=== PATIENT | female | born 1930 | race Caucasian/White ===

== ENCOUNTER 2018-07-20 07:37 | Emergency (ER) | payer MEDICARE, OTHER ==
[~2018-07-20] VITALS: Ht 162.6 cm; Wt 79.8 kg
[2018-07-20 08:22] LABS: BASO # 0.1 x10^3/uL (0.0-0.2); BASO % 1 % (0-3); EOS # 0.2 x10^3/uL (0.0-0.7); EOS % 3 % (0-3); HEMATOCRIT 43.6 % (36.0-47.0); HEMOGLOBIN 14.7 g/dL (12.0-15.5); LYMPH # 1.9 x10^3/uL (1.0-4.8); LYMPH % 23 % (24-48); MEAN CORPUSCULAR HEMOGLOBIN 30 pg (25-35); MEAN CORPUSCULAR HGB CONC 34 g/dL (31-37); MEAN CORPUSCULAR VOLUME 90 fL (79-100); MONO # 0.9 x10^3/uL (0.0-1.1); MONO % 11 % (0-9); NEUT # 5.1 x10^3uL (1.8-7.7); NEUT % 62 % (31-73); PLATELET COUNT 328 x10^3/uL (140-400); RED BLOOD COUNT 4.86 x10^6/uL (3.50-5.40); RED CELL DISTRIBUTION WIDTH 14.7 % (11.5-14.5); WHITE BLOOD COUNT 8.2 x10^3/uL (4.0-11.0)
[2018-07-20 08:24] LABS: CLARITY,URINE CLEAR; COLOR,URINE ORANGE
[2018-07-20 08:25] LABS: BACTERIA,URINE 0 /HPF (0-FEW); HYALINE CASTS, URINE FEW /HPF; RBC,URINE 0 /HPF (0-2); SQUAMOUS EPITHELIAL CELL,UR OCC /LPF; WBC,URINE 0 /HPF (0-4)
[2018-07-20 08:29] LABS: CREATININE 0.8 mg/dL (0.6-1.0); GFR 67.8; POTASSIUM 3.7 mmol/L (3.5-5.1)
[2018-07-20 08:43] LABS: ALBUMIN 3.5 g/dL (3.4-5.0); TOTAL BILIRUBIN 0.8 mg/dL (0.2-1.0)
[2018-07-20] MEDS ORDERED: CARV3.122 PO (08:53)
[2018-07-20] MEDS ORDERED: VENL37.56 PO (08:53)
[2018-07-20] MEDS ORDERED: PROM25TA10 PO (08:53)
[2018-07-20] MEDS ORDERED: PHEN-443 PO (08:53)
[2018-07-20] MEDS ORDERED: HYDR-2867 PO (08:53)
[2018-07-20] MEDS ORDERED: RISP0.5T3 PO (08:53)
[2018-07-20] MEDS ORDERED: POTA10TA12 PO (08:53)
[2018-07-20] MEDS ORDERED: ASPI325T11 PO (08:53)
[2018-07-20] MEDS ORDERED: BETA1TAB10 PO (08:53)
[2018-07-20] MEDS ORDERED: DONE5TAB7 PO (08:53)
[2018-07-20] MEDS ORDERED: ATOR20TA58 PO (08:53)
[2018-07-20] MEDS ORDERED: AMLO10TA2 PO (08:53)
[2018-07-20] MEDS ORDERED: LEVO75TA5 PO (08:53)
[2018-07-20] MEDS ORDERED: LEVO500T59 PO (08:53)
--- NOTE | 2018-07-20 09:15 | EKG ---
[facility] [address] [place] [address] Test Date: 2018-07-20 Test Time: 08:29:40 Pat Name: KHUSHBU ACOSTA Department: Room: Gender: F Director Of Business Systems: : 1930 Requested By: ARMAND AMAYA Order Number: [id number] Reading MD: Patrick Acosta MD Measurements Intervals [place] Rate: 105 P: 26 AR: 160 QRS: 15 QRSD: 166 T: -159 QT: 380 QTc: 506 Interpretive Statements V-PACED RHYTHM PROBABLE SINUS Electronically Signed On 07-20-2018 14:54:34 CDT by Patrick Acosta MD
[2018-07-20] MEDS ORDERED: PHEN100T82 PO (09:27)
--- NOTE | 2018-07-20 09:27 | PHYS DOC ---
Past Medical History Past Medical History: High Cholesterol, Heart Disease, Hypertension, Hypothyroid, Other Additional Past Medical Histor: Freq.UTIs Past Surgical History: Appendectomy, Cholecystectomy, Hysterectomy, Pacemaker, Other Additional Past Surgical Histo: Back surgery,breast reduction,dental implants. Alcohol Use: None Drug Use: None Adult General Chief Complaint Chief Complaint: PAIN ON URINATION [facility] HPI Patient is a 88 year old female who presents with complaining of painful urination with burning and dysuria for the last few days. Patient states she has off and on problem with her urination for the last 6 months and taking multiple courses of antibiotic and getting better and worse. Patient states she had painful urination with dysuria for the last few days that gradually getting worse. Patient complaining of nausea and discomfort feeling in lower abdomen without lotion of pain. Patient is vomiting, fever and chills, diarrhea, chest pain and shortness of breath. Review of Systems Review of Systems Constitutional: Denies fever or chills [] Eyes: Denies change in visual acuity, redness, or eye pain [] HENT: Denies nasal congestion or sore throat [] Respiratory: Denies cough or shortness of breath [] Cardiovascular: No additional information not addressed in HPI [] GI: Reports abdominal pain, nausea, denies vomiting, bloody stools or diarrhea [ ] : Reports dysuria Musculoskeletal: Denies back pain or joint pain [] Integument: Denies rash or skin lesions [] Neurologic: Denies headache, focal weakness or sensory changes [] Endocrine: Denies polyuria or polydipsia [] All other systems were reviewed and found to be within normal limits, except as documented in this note. Current Medications Current Medications Current Medications Medications (Trade) Dose Ordered Sig/Maliha Start Time Stop Time Status Last Admin Dose Admin Sodium Chloride 500 ml @ 500 mls/hr 1X ONCE 07/20/18 09:30 07/20/18 10:29 DC 07/20/18 09:32 500 MLS/HR Allergies Allergies Allergies Coded Allergies Type Severity Reaction Last Updated Verified Sulfa (Sulfonamide Antibiotics) Allergy Intermediate Unknown 07/20/18 Yes adhesive tape Allergy Intermediate Hives 07/20/18 Yes codeine Allergy Intermediate "Builds up-makes me crazy" 07/20/18 Yes erythromycin base Allergy Intermediate Swelling. 07/20/18 Yes hydrocodone Allergy Intermediate "Builds up-makes me crazy." 07/20/18 Yes iodine Allergy Intermediate Swelling. 07/20/18 Yes meperidine Allergy Intermediate Itch,N/V,Swelling 07/20/18 Yes Physical Exam Physical Exam Constitutional: Well developed, well nourished, mild distress, non-toxic appearance. [] HENT: Normocephalic, atraumaticoropharynx moist, no oral exudates, nose normal. [] Eyes: PERRLA, EOMI, conjunctiva normal, no discharge. [] Neck: Normal range of motion, no tenderness, supple, no stridor. [] Cardiovascular: Tachycardia, no murmur [] Lungs & Thorax: Bilateral breath sounds clear to auscultation [] Abdomen: Bowel sounds normal, soft, suprapubic guarding, no tenderness, no masses, no pulsatile masses. [] Skin: Warm, dry, no erythema, no rash. [] Back: No tenderness, no CVA tenderness. [] Extremities: No tenderness, no cyanosis, no clubbing, ROM intact, no edema. [] Neurologic: Alert and oriented X 3, normal motor function, normal sensory function, no focal deficits noted. [] Psychologic: Affect normal, judgement normal, mood normal. [] Current Patient Data Vital Signs Vital Signs Date Time Temp Pulse Resp B/P (MAP) Pulse Ox O2 Delivery O2 Flow Rate FiO2 07/20/18 09:50 92 20 164/89 (114) 92 Room Air 07/20/18 07:46 97.6 97.6 Lab Values Laboratory Tests Test 07/20/18 08:00 White Blood Count 8.2 x10^3/uL (4.0-11.0) Red Blood Count 4.86 x10^6/uL (3.50-5.40) Hemoglobin 14.7 g/dL (12.0-15.5) Hematocrit 43.6 % (36.0-47.0) Mean Corpuscular Volume 90 fL (79-100) Mean Corpuscular Hemoglobin 30 pg (25-35) Mean Corpuscular Hemoglobin Concent 34 g/dL (31-37) Red Cell Distribution Width 14.7 % (11.5-14.5) H Platelet Count 328 x10^3/uL (140-400) Neutrophils (%) (Auto) 62 % (31-73) Lymphocytes (%) (Auto) 23 % (24-48) L Monocytes (%) (Auto) 11 % (0-9) H Eosinophils (%) (Auto) 3 % (0-3) Basophils (%) (Auto) 1 % (0-3) Neutrophils # (Auto) 5.1 x10^3uL (1.8-7.7) Lymphocytes # (Auto) 1.9 x10^3/uL (1.0-4.8) Monocytes # (Auto) 0.9 x10^3/uL (0.0-1.1) Eosinophils # (Auto) 0.2 x10^3/uL (0.0-0.7) Basophils # (Auto) 0.1 x10^3/uL (0.0-0.2) Urine Collection Type U cath Urine Color [place] Urine Clarity Clear Urine pH Urine Specific [place] Urine Protein mg/dL (NEG-TRACE) Urine Glucose (UA) mg/dL (NEG) Urine Ketones (Stick) mg/dL (NEG) Urine Blood (NEG) Urine Nitrite (NEG) Urine Bilirubin (NEG) Urine Urobilinogen Dipstick mg/dL (0.2 mg/dL) Urine Leukocyte Esterase (NEG) Urine RBC 0 /HPF (0-2) Urine WBC 0 /HPF (0-4) Urine Squamous Epithelial Cells Occ /LPF Urine Bacteria 0 /HPF (0-FEW) Urine Hyaline Casts Few /HPF Urine Mucus Mod /LPF Sodium Level 138 mmol/L (136-145) Potassium Level 3.7 mmol/L (3.5-5.1) Chloride Level 103 mmol/L (98-107) Carbon Dioxide Level 26 mmol/L (21-32) Anion Gap 9 (6-14) Blood Urea Nitrogen 15 mg/dL (7-20) Creatinine 0.8 mg/dL (0.6-1.0) Estimated GFR (Cockcroft-Gault) 67.8 BUN/Creatinine Ratio 19 (6-20) Glucose Level 124 mg/dL (70-99) H Lactic Acid Level 1.0 mmol/L (0.4-2.0) Calcium Level 9.0 mg/dL (8.5-10.1) Total Bilirubin 0.8 mg/dL (0.2-1.0) Aspartate Amino Transferase (AST) 15 U/L (15-37) Alanine Aminotransferase (ALT) 18 U/L (14-59) Alkaline Phosphatase 76 U/L (46-116) Total Protein 7.0 g/dL (6.4-8.2) Albumin 3.5 g/dL (3.4-5.0) Albumin/Globulin Ratio 1.0 (1.0-1.7) Lipase 297 U/L (73-393) Laboratory Tests 07/20/18 08:00 Laboratory Tests 07/20/18 08:00 EKG EKG Case interpreted by me. EKG at 0 829 showed sinus tachycardia at rate of 105, nonspecific intraventricular block, no acute ST and T-wave abnormalities.[] Radiology/Procedures Radiology/Procedures [] Course & Med Decision Making Course & Med Decision Making Pertinent Labs reviewed. (See chart for details) Evolution of patient in ER showed 88-year-old female patient with complaining of urinary frequency and dysuria intermittently for 6 months that did not worse for the last few days. Patient has suprapubic guarding. Patient had heart rate of 105 without atrial fibrillation area and labs including UA, CBC, CMP, lactic acid was unremarkable. Patient states she has had history of tachycardia that getting better with taking her home medication but she didn't take her medication this morning. Patient treated with IV fluid and heart rate dropped to 90s. Plan discharge patient home with diagnosis of interstitial cystitis and instruction to follow up with on-call urologist. Dragon Disclaimer Dragon Disclaimer This electronic medical record was generated, in whole or in part, using a voice recognition dictation system. Departure Departure Impression: Primary Impression: Interstitial cystitis Additional Impression: Sinus tachycardia Disposition: HOME, SELF-CARE (at 0924) Condition: STABLE Referrals: LI JONES MD Patient Instructions: Interstitial Cystitis, Nonspecific Tachycardia Additional Instructions: Follow-up with on-call urology in one or 2 days Drink plenty of liquids Follow-up with your primary care physician in 3-5 days Return to ER if not getting better Scripts Phenazopyridine Hcl (PYRIDIUM) 100 Mg Tablet 100 MG PO TID, #20 TAB Prov: ARMAND AMAYA MD 07/20/18 Problem Qualifiers ARMAND AMAYA MD Jul 20, 2018 09:27
[2018-07-20] MEDS: IV NORMAL SALINE 500ML BAG 500 ML IV ONE (09:32)
[2018-07-20 09:50] VITALS: BP 164/89
== END 2018-07-20 10:00 | disposition home or self-care (01) ==
LOC: ER 07:37
DX: N30.10 Interstitial cystitis (chronic) without hematuria (principal); R00.0 Tachycardia, unspecified; E78.00 Pure hypercholesterolemia, unspecified; I11.9 Hypertensive heart disease without heart failure; E03.9 Hypothyroidism, unspecified; Z90.49 Acquired absence of other specified parts of digestive tract; Z90.710 Acquired absence of both cervix and uterus; Z90.89 Acquired absence of other organs; Z95.0 Presence of cardiac pacemaker; Z88.2 Allergy status to sulfonamides; Z88.5 Allergy status to narcotic agent; Z88.8 Allergy status to other drugs, medicaments and biological substances; Z91.041 Radiographic dye allergy status
CPT/HCPCS: 36415; 80053; 81001; 83605; 83690; 85025; 93005; 99285; J7040

== ENCOUNTER 2018-07-23 08:16 | Emergency (ER) | payer MEDICARE, OTHER ==
[~2018-07-23] VITALS: Ht 167.6 cm; Wt 79.8 kg
[~2018-07-23 08:16] MED LIST: AMLO10TA2 PO; ASPI325T11 PO; ATOR20TA58 PO; BETA1TAB10 PO; CARV3.122 PO; DONE5TAB7 PO; HYDR-2867 PO; LEVO500T59 PO; LEVO75TA5 PO; PHEN-443 PO; PHEN100T82 PO; POTA10TA12 PO; PROM25TA10 PO; RISP0.5T3 PO; VENL37.56 PO
[2018-07-23] MEDS ORDERED: ACETAMINOPHEN 500 MG TABLET PO ONE (08:45)
[2018-07-23] MEDS ORDERED: IV NORMAL SALINE 1000ML BAG 1,000 ML IV ONE (08:45)
[2018-07-23] MEDS ORDERED: fentaNYL PF VIAL 100 MCG/2 ML VIAL IV ONE (08:45)
--- NOTE | 2018-07-23 08:51 | PHYS DOC ---
Past Medical History Past Medical History: High Cholesterol, Heart Disease, Hypertension, Hypothyroid, Other Additional Past Medical Histor: Freq.UTIs Past Surgical History: Appendectomy, Cholecystectomy, Hysterectomy, Pacemaker, Other Additional Past Surgical Histo: Back surgery,breast reduction,dental implants. Alcohol Use: None Drug Use: None Adult General Chief Complaint Chief Complaint: ABDOMINAL PAIN HPI HPI Patient is a 88 year old female who is presenting with lower abdominal discomfort described as a burning sensation she says it is in her bladder she's had it for several months she was treated here in the emergency room recently for interstitial side cystitis although it is worth noting that she had 0 white blood cells in her urine at that time. She says the pain is worse it feels burning all throughout her whole abdomen and in her back no fever no vomiting history is limited by the patient's dementia. Review of Systems Review of Systems Constitutional: Denies fever or chills [] Eyes: Denies change in visual acuity, redness, or eye pain [] HENT: Denies nasal congestion or sore throat [] Respiratory:occ sob Cardiovascular: No additional information not addressed in HPI [] Musculoskeletal: Integument: Denies rash or skin lesions [] Neurologic: Denies headache, focal weakness or sensory changes [] All other systems were reviewed and found to be within normal limits, except as documented in this note. Current Medications Current Medications Current Medications Medications (Trade) Dose Ordered Sig/Maliha Start Time Stop Time Status Last Admin Dose Admin Acetaminophen (Tylenol) 1,000 mg 1X ONCE 07/23/18 08:45 07/23/18 08:46 DC Fentanyl Citrate (Fentanyl 2ml Vial) 50 mcg 1X ONCE 07/23/18 08:45 07/23/18 08:45 DC Sodium Chloride 1,000 ml @ 1,000 mls/hr 1X ONCE 07/23/18 08:45 07/23/18 09:44 DC 07/23/18 09:06 1,000 MLS/HR Allergies Allergies Allergies Coded Allergies Type Severity Reaction Last Updated Verified Sulfa (Sulfonamide Antibiotics) Allergy Intermediate Unknown 07/20/18 Yes adhesive tape Allergy Intermediate Hives 07/20/18 Yes codeine Allergy Intermediate "Builds up-makes me crazy" 07/20/18 Yes erythromycin base Allergy Intermediate Swelling. 07/20/18 Yes hydrocodone Allergy Intermediate "Builds up-makes me crazy." 07/20/18 Yes iodine Allergy Intermediate Swelling. 07/20/18 Yes meperidine Allergy Intermediate Itch,N/V,Swelling 07/20/18 Yes Physical Exam Physical Exam Constitutional: Well developed, well nourished, mild distress, non-toxic appearance. [] HENT: Normocephalic, atraumatic, bilateral external ears normal, oropharynx moist, no oral exudates, nose normal. [] Eyes: PERRLA, EOMI, conjunctiva normal, no discharge. [] Neck: Normal range of motion, no tenderness, supple, no stridor. [] Cardiovascular:Heart rate regular rhythm, no murmur [] Lungs & Thorax: Bilateral breath sounds clear to auscultation [] Abdomen: Bowel sounds normal, soft, rlq and suprapubic tenderness, no masses, no pulsatile masses. [] Skin: Warm, dry, no erythema, no rash. [] Back:ttp noted diffusely no focality. I feel there is a reducible hernia in the posterior lateral aspect of the abdomen and the back. Extremities: No tenderness, no cyanosis, no clubbing, ROM intact, no edema. [] Neurologic: Alert and oriented X2, normal motor function, normal sensory function, no focal deficits noted. [] Psychologic: Affect normal, judgement normal, mood ANXIOSU [] Current Patient Data Vital Signs Vital Signs Date Time Temp Pulse Resp B/P (MAP) Pulse Ox O2 Delivery O2 Flow Rate FiO2 07/23/18 08:49 97.7 100 16 178/90 (119) 90 Room Air 97.7 Lab Values Laboratory Tests Test 07/23/18 08:43 07/23/18 08:55 Urine Collection Type U cath Urine Color Yellow Urine Clarity Clear Urine pH 6.0 Urine Specific [place] 1.010 Urine Protein Negative mg/dL (NEG-TRACE) Urine Glucose (UA) Negative mg/dL (NEG) Urine Ketones (Stick) Negative mg/dL (NEG) Urine Blood Negative (NEG) Urine Nitrite Positive (NEG) Urine Bilirubin Negative (NEG) Urine Urobilinogen Dipstick 1.0 mg/dL (0.2 mg/dL) Urine Leukocyte Esterase Small (NEG) Urine RBC Occ /HPF (0-2) Urine WBC 11-20 /HPF (0-4) Urine Squamous Epithelial Cells Many /LPF Urine Renal Epithelial Cells Few /LPF Urine Bacteria Many /HPF (0-FEW) Urine Mucus Slight /LPF White Blood Count 8.7 x10^3/uL (4.0-11.0) Red Blood Count 4.61 x10^6/uL (3.50-5.40) Hemoglobin 14.1 g/dL (12.0-15.5) Hematocrit 41.5 % (36.0-47.0) Mean Corpuscular Volume 90 fL (79-100) Mean Corpuscular Hemoglobin 31 pg (25-35) Mean Corpuscular Hemoglobin Concent 34 g/dL (31-37) Red Cell Distribution Width 14.4 % (11.5-14.5) Platelet Count 283 x10^3/uL (140-400) Neutrophils (%) (Auto) 71 % (31-73) Lymphocytes (%) (Auto) 16 % (24-48) L Monocytes (%) (Auto) 9 % (0-9) Eosinophils (%) (Auto) 3 % (0-3) Basophils (%) (Auto) 1 % (0-3) Neutrophils # (Auto) 6.2 x10^3uL (1.8-7.7) Lymphocytes # (Auto) 1.4 x10^3/uL (1.0-4.8) Monocytes # (Auto) 0.8 x10^3/uL (0.0-1.1) Eosinophils # (Auto) 0.3 x10^3/uL (0.0-0.7) Basophils # (Auto) 0.1 x10^3/uL (0.0-0.2) Prothrombin Time 14.1 SEC (11.7-14.0) H Prothrombin Time INR 1.1 (0.8-1.1) Sodium Level 136 mmol/L (136-145) Potassium Level 3.6 mmol/L (3.5-5.1) Chloride Level 103 mmol/L (98-107) Carbon Dioxide Level 29 mmol/L (21-32) Anion Gap 4 (6-14) L Blood Urea Nitrogen 11 mg/dL (7-20) Creatinine 0.7 mg/dL (0.6-1.0) Estimated GFR (Cockcroft-Gault) 79.2 BUN/Creatinine Ratio 16 (6-20) Glucose Level 121 mg/dL (70-99) H Calcium Level 8.6 mg/dL (8.5-10.1) Total Bilirubin 0.6 mg/dL (0.2-1.0) Aspartate Amino Transferase (AST) 13 U/L (15-37) L Alanine Aminotransferase (ALT) 16 U/L (14-59) Alkaline Phosphatase 74 U/L (46-116) Troponin I Quantitative < 0.017 ng/mL (0.000-0.055) Total Protein 6.4 g/dL (6.4-8.2) Albumin 3.1 g/dL (3.4-5.0) L Albumin/Globulin Ratio 0.9 (1.0-1.7) L Lipase 149 U/L (73-393) Laboratory Tests 07/23/18 08:55 Laboratory Tests 07/23/18 08:55 EKG EKG [] Radiology/Procedures Radiology/Procedures [] Impressions: VIMPRESSION: 1. Colonic diverticulosis with short segment of mucosal thickening and slight surrounding stranding involving the proximal to mid sigmoid colon suggesting a component of diverticulitis. 2. Mucosal wall thickening involving the cecum and ascending colon. This is greater than expected for peristalsis. The absence of surrounding fatty stranding suggests possible wall thickening due to the sequela of chronic inflammation. Correlate for history of colitis. 3. Left posterior abdominal wall hernia containing fat and a segment of descending colon. There is evidence of prior right posterior lateral abdominal wall hernia repair. There is a small fat-containing hernia along the inferior aspect of the mesh at the level of the iliac wing. 4. Small fat-containing ventral abdominal wall hernias, described above. 5. Small hiatal hernia and evidence of prior suspected hernia repair. 6. Lobulation along the inferior right and superior left kidneys, difficult to assess in the absence of contrast. The possibility of renal neoplasm is not excluded. There are also suspected small cysts within the left kidney, one of which is hemorrhagic. Correlate with renal sonography. 7. T9 and T12 compression fractures with vertebroplasty changes. No acute fracture is seen. Electronically signed by: Irina Goldstein MD (07/23/2018 9:48 AM) [facility] Course & Med Decision Making Course & Med Decision Making Pertinent Labs and Imaging studies reviewed. (See chart for details) []88 yo f hx of chronic back pain intersitital cystitis coming in with what sounds most like bladder pain however there were no white cells were definitely do CT to rule out other pathology. ED summary: There is evidence of possible diverticulitis on CT scan I think colitis is probably an over read. Noted the posterior lateral hernia. It appears reproducible on my physical examination and patient tells me she has had this for several years ever since a back surgery where they used "a vacuum" . She is not currently interested repair. Patient does have white cells in her urine today but there are a lot of squames. I think that we should give her a prescription for Augmentin for diverticulitis as well as pain control. I offered admission to the hospital however the son says that she is taking oral at home and that her pain is actually fairly well controlled overall and that she is having bowel movements and passing gas and so he feels that she can do this at home which I think is reasonable. Return precautions were discussed and they both voiced understanding of the instructions. Discharge instructions also included follow-up plan for the renal mass findings need for outpatient renal ultrasound. Dragon Disclaimer Dragon Disclaimer This electronic medical record was generated, in whole or in part, using a voice recognition dictation system. Departure Departure Impression: Primary Impression: Diverticulitis Disposition: 01 HOME, SELF-CARE Condition: IMPROVED Referrals: ERNA WU MD (PCP) Scripts Oxycodone/Apap 5-325 (PERCOCET 5-325 MG TABLET) 1 Each Tablet 1-2 EACH PO PRN TID PRN for PAIN, #25 TAB pain Prov: KAY TERRY MD 07/23/18 Amoxicillin/Potassium Clav (AUGMENTIN 875-125 TABLET) 1 Each Tablet 1 TAB PO BID, #20 TAB Prov: KAY TERRY MD 07/23/18 KAY TERRY MD Jul 23, 2018 08:51
[2018-07-23 09:03] LABS: BILIRUBIN,URINE NEGATIVE (NEG); CLARITY,URINE CLEAR; NITRITE,URINE POSITIVE (NEG); PROTEIN,URINE NEGATIVE (NEG-TRACE)
[2018-07-23 09:04] LABS: COLOR,URINE YELLOW
[2018-07-23 09:05] LABS: BACTERIA,URINE MANY /HPF (0-FEW); SQUAMOUS EPITHELIAL CELL,UR MANY /LPF
[2018-07-23 09:06] LABS: RBC,URINE OCC /HPF (0-2)
[2018-07-23 09:08] LABS: BASO # 0.1 x10^3/uL (0.0-0.2); BASO % 1 % (0-3); EOS # 0.3 x10^3/uL (0.0-0.7); EOS % 3 % (0-3); HEMATOCRIT 41.5 % (36.0-47.0); HEMOGLOBIN 14.1 g/dL (12.0-15.5); LYMPH # 1.4 x10^3/uL (1.0-4.8); LYMPH % 16 % (24-48); MEAN CORPUSCULAR HEMOGLOBIN 31 pg (25-35); MEAN CORPUSCULAR HGB CONC 34 g/dL (31-37); MEAN CORPUSCULAR VOLUME 90 fL (79-100); MONO # 0.8 x10^3/uL (0.0-1.1); MONO % 9 % (0-9); NEUT # 6.2 x10^3uL (1.8-7.7); NEUT % 71 % (31-73); PLATELET COUNT 283 x10^3/uL (140-400); RED BLOOD COUNT 4.61 x10^6/uL (3.50-5.40); RED CELL DISTRIBUTION WIDTH 14.4 % (11.5-14.5); WHITE BLOOD COUNT 8.7 x10^3/uL (4.0-11.0)
[2018-07-23 09:17] LABS: CALCIUM 8.6 mg/dL (8.5-10.1); CREATININE 0.7 mg/dL (0.6-1.0); GFR 79.2; POTASSIUM 3.6 mmol/L (3.5-5.1); PROTHROMBIN TIME PATIENT 14.1 SEC (11.7-14.0)
[2018-07-23 09:22] LABS: ALBUMIN 3.1 g/dL (3.4-5.0); ALBUMIN/GLOBULIN RATIO 0.9 (1.0-1.7); TOTAL BILIRUBIN 0.6 mg/dL (0.2-1.0); TOTAL PROTEIN 6.4 g/dL (6.4-8.2)
--- NOTE | 2018-07-23 09:52 | RAD ---
EXAM: Abdomen and pelvis CT without intravenous contrast. HISTORY: Right lower quadrant pain. TECHNIQUE: Computed tomographic images of the abdomen and pelvis were obtained without contrast. Multiplanar reformatting was performed. *One or more of the following individualized dose reduction techniques were utilized for this examination: 1. Automated exposure control. 2. Adjustment of the mA and/or kV according to patient size. 3. Use of iterative reconstruction technique. COMPARISON: None. FINDINGS: Evaluation of the lower thorax demonstrates right middle lobe and lingular atelectasis or scarring. There is minimal posterior dependent and basilar atelectasis. There is no infiltrate. There are cardiac pacemaker leads. There is calcification of the mitral valve annulus. There is a small hiatal hernia. There are surgical clips within the left upper quadrant possibly due to prior hernia repair. No hepatic lesion is seen. The gallbladder is surgically absent. There are calcifications along the pancreatic body would or vascular or due to the sequela of chronic pancreatitis. The adrenal glands are unremarkable. There are few granulomas within the spleen. There is no evidence of nephroureterolithiasis or obstructive uropathy. There is a 4 mm hyperdense lesion within the posterior mid zone of the left kidney, likely a hemorrhagic cyst. There is a 6 mm partially exophytic lesion along the anterior lower mid zone of the left kidney, possibly a cyst. There are areas of nodularity involving the inferior medial right kidney and anterior superior left kidney measuring 2.3 cm and 3.7 cm, difficult to assess in the absence of contrast. The possibility of solid mass is not excluded. There is mesh along the posterior and lateral right lower thoracic and abdominal wall due to prior hernia repair. There is protrusion of fat along the inferior aspect of the mesh along the superior aspect of the right iliac bone. There is a posterior left abdominal wall hernia containing fat and a segment of descending colon. The hernia sac measures 10.2 cm in maximum dimension. There are several small fat-containing midline supraumbilical hernias containing fat. The largest of these measures 4.8 cm in maximum dimension and associated with slight protrusion of a portion of the wall of the transverse colon. There is a small fat-containing left periumbilical hernia measuring 2.6 cm. There is mild circumferential wall thickening involving the cecum and proximal ascending colon. There is no pericolonic stranding in this region. There is colonic diverticulosis. There is segmental wall thickening with minimal surrounding fatty stranding involving the proximal to mid sigmoid colon, possibly due to diverticulitis. No abscess is seen. The bladder is unremarkable. The uterus is surgically absent. There is a tortuous atherosclerotic abdominal aorta. There is no lymphadenopathy. There are degenerative changes throughout the spine. There is grade 1 anterolisthesis at L4-L5 and L5-S1. There are moderate to severe chronic compression fractures with vertebroplasty changes at T12 and T9. There is slight retropulsion of the cortex at T12 resulting in mild central canal stenosis. No acute fracture is seen. IMPRESSION: 1. Colonic diverticulosis with short segment of mucosal thickening and slight surrounding stranding involving the proximal to mid sigmoid colon suggesting a component of diverticulitis. 2. Mucosal wall thickening involving the cecum and ascending colon. This is greater than expected for peristalsis. The absence of surrounding fatty stranding suggests possible wall thickening due to the sequela of chronic inflammation. Correlate for history of colitis. 3. Left posterior abdominal wall hernia containing fat and a segment of descending colon. There is evidence of prior right posterior lateral abdominal wall hernia repair. There is a small fat-containing hernia along the inferior aspect of the mesh at the level of the iliac wing. 4. Small fat-containing ventral abdominal wall hernias, described above. 5. Small hiatal hernia and evidence of prior suspected hernia repair. 6. Lobulation along the inferior right and superior left kidneys, difficult to assess in the absence of contrast. The possibility of renal neoplasm is not excluded. There are also suspected small cysts within the left kidney, one of which is hemorrhagic. Correlate with renal sonography. 7. T9 and T12 compression fractures with vertebroplasty changes. No acute fracture is seen. Electronically signed by: Irina Goldstein MD (07/23/2018 9:48 AM) [facility]
[2018-07-23 10:22] VITALS: BP 166/92
[2018-07-23] MEDS ORDERED: AMOX1TAB61 PO (10:37)
[2018-07-23] MEDS ORDERED: OXYC-323 PO (10:37)
== END 2018-07-23 10:57 | disposition home or self-care (01) ==
LOC: ER 08:16
DX: K57.92 Diverticulitis of intestine, part unspecified, without perforation or abscess without bleeding (principal); E78.00 Pure hypercholesterolemia, unspecified; I10 Essential (primary) hypertension; E03.9 Hypothyroidism, unspecified; Z95.0 Presence of cardiac pacemaker; Z90.49 Acquired absence of other specified parts of digestive tract; Z90.710 Acquired absence of both cervix and uterus; Z88.2 Allergy status to sulfonamides; Z88.5 Allergy status to narcotic agent; Z88.8 Allergy status to other drugs, medicaments and biological substances; Z91.048 Other nonmedicinal substance allergy status
CPT/HCPCS: 36415; 74176; 80053; 81001; 83690; 84484; 85025; 85610; 87086; 87186; 99285; J7030

== ENCOUNTER 2018-07-30 09:59 | Emergency (ER) | payer MEDICARE, OTHER ==
[~2018-07-30] VITALS: Ht 162.6 cm; Wt 79.8 kg
[~2018-07-30 09:59] MED LIST changes: -AMLO10TA2 PO; +AMLO10TA6 PO; +AMOX1TAB61 PO; +OXYC-323 PO
[2018-07-30] MEDS ORDERED: MORPHINE SULFATE 4 MG/ML VIAL. IV ONE (11:15)
[2018-07-30 11:42] LABS: COLOR,URINE ORANGE
[2018-07-30 11:43] LABS: CLARITY,URINE CLEAR
[2018-07-30 11:57] LABS: BACTERIA,URINE 0 /HPF (0-FEW); RBC,URINE 0 /HPF (0-2); SQUAMOUS EPITHELIAL CELL,UR OCC /LPF; WBC,URINE 0 /HPF (0-4)
[2018-07-30 12:03] LABS: BASO # 0.1 x10^3/uL (0.0-0.2); BASO % 1 % (0-3); EOS # 0.2 x10^3/uL (0.0-0.7); EOS % 3 % (0-3); HEMOGLOBIN 13.9 g/dL (12.0-15.5); LYMPH # 1.5 x10^3/uL (1.0-4.8); LYMPH % 21 % (24-48); MEAN CORPUSCULAR HEMOGLOBIN 31 pg (25-35); MEAN CORPUSCULAR HGB CONC 34 g/dL (31-37); MEAN CORPUSCULAR VOLUME 90 fL (79-100); MONO # 0.6 x10^3/uL (0.0-1.1); MONO % 9 % (0-9); NEUT # 4.9 x10^3uL (1.8-7.7); NEUT % 67 % (31-73); PLATELET COUNT 219 x10^3/uL (140-400); RED BLOOD COUNT 4.54 x10^6/uL (3.50-5.40); RED CELL DISTRIBUTION WIDTH 15.1 % (11.5-14.5); WHITE BLOOD COUNT 7.3 x10^3/uL (4.0-11.0)
[2018-07-30 12:06] LABS: CALCIUM 8.9 mg/dL (8.5-10.1); CREATININE 0.7 mg/dL (0.6-1.0); GFR 79.2; POTASSIUM 3.8 mmol/L (3.5-5.1)
--- NOTE | 2018-07-30 13:44 | RAD ---
CT study of the abdomen and pelvis without contrast INDICATIONS: Ongoing worsening abdominal pain. History of diverticulitis. Follow-up study. COMPARISON STUDY: July 23, 2018. TECHNIQUE: Noncontrast helical CT scanning of the abdomen and pelvis was performed. Without contrast, the sensitivity to detect organ pathology and GI tract pathology is decreased. PQRS compliance Statement One or more of the following individualized dose reduction techniques were utilized for this study: 1. Automated exposure control 2. Adjustment of the mA and/or kV according to patient size 3. Use of iterative reconstruction technique FINDINGS: The patient had a recent CT study performed on July 23, 2018. See that report. The liver and spleen and pancreas are unremarkable on this noncontrast study. The gallbladder is surgically absent. There is mild dilatation of the extrahepatic biliary tree measuring up to 9 mm most likely due to the reservoir effect after cholecystectomy. The wall thickening involving the cecum and ascending colon and transverse colon seen on the previous study has resolved. The terminal ileum is unremarkable. The appendix is not identified but there are no secondary CT findings of appendicitis. The pericolonic edema of the proximal to mid sigmoid colon seen previously has resolved. No new focus of mesenteric or pericolonic edema is seen and no abscess or free fluid or free intraperitoneal air is evident. Colonic diverticulosis is again evident and most severely involves the sigmoid colon. No obstructive bowel pattern is evident. Again seen are the hernias discussed on the previous report and are unchanged.Small hiatal hernia is again evident. Lobulation of both kidneys previously described is again evident. There is no new hydronephrosis or hydroureter or ureteral stone present. Compression fractures of the spine are again evident and are unchanged. No lung base consolidation is evident. IMPRESSION: Since the previous study of July 23, 2018, there has been resolution of the wall thickening of the cecum and ascending colon and transverse colon consistent with resolution of colitis. Since the previous study, there has been resolution of the previously seen pericolonic inflammation around the proximal to mid sigmoid colon consistent with resolution of diverticulitis. No new finding is seen involving the bowel. No bowel obstruction is seen. Cholecystectomy. There is mild dilatation of the extrahepatic biliary tree which appears slightly more prominent then on the previous study and measures 9 mm. This may be secondary to the reservoir effect. Correlation with liver function tests is recommended. Electronically signed by: Avery Barrios MD (07/30/2018 1:41 PM) [facility]
[2018-07-30 14:06] VITALS: BP 140/69
[2018-07-30] MEDS ORDERED: OXYC-323 PO (14:38)
--- NOTE | 2018-07-30 17:44 | PHYS DOC ---
Past Medical History Past Medical History: High Cholesterol, Heart Disease, Hypertension, Hypothyroid, Other Additional Past Medical Histor: Freq.UTIs Past Surgical History: Appendectomy, Cholecystectomy, Hysterectomy, Pacemaker, Other Additional Past Surgical Histo: Back surgery,breast reduction,dental implants. Alcohol Use: None Drug Use: None Adult General Chief Complaint Chief Complaint: MEDICATION REFILL [facility] HPI Patient is a 88 year old female who presents with pelvic pain. The patient is primarily requesting a medication refill. She was evaluated here on July 23. At that time she was diagnosed with possible urinary tract infection although her urine was contaminated as a sample. She also had possible diverticulitis. She was discharged home on Augmentin and given some Percocet for pain. Of note, the patient does also have chronic pelvic pain. She returns to the emergency department today because she ran out of her Percocet. She is requesting a refill. She does have ongoing pain in the pelvic area. She denies nausea or vomiting. She is having normal bowel movements. She has no fever. She denies urinary symptoms. She has been taking Augmentin was prescribed. Review of Systems Review of Systems Constitutional: Denies fever or chills Eyes: Denies change in visual acuity, redness, or eye pain HENT: Denies nasal congestion or sore throat Respiratory: Denies cough or shortness of breath Cardiovascular: No additional information not addressed in HPI GI: Denies n/v/d : Denies dysuria or hematuria [] Musculoskeletal: Denies back pain or joint pain [] Integument: Denies rash or skin lesions [] Neurologic: Denies headache, focal weakness or sensory changes [] Endocrine: Denies polyuria or polydipsia [] All other systems were reviewed and found to be within normal limits, except as documented in this note. Current Medications Current Medications Current Medications Medications (Trade) Dose Ordered Sig/Maliha Start Time Stop Time Status Last Admin Dose Admin Morphine Sulfate (Morphine Sulfate) 4 mg 1X ONCE 07/30/18 11:15 07/30/18 11:17 DC 07/30/18 11:47 4 MG Allergies Allergies Allergies Coded Allergies Type Severity Reaction Last Updated Verified Sulfa (Sulfonamide Antibiotics) Allergy Intermediate Unknown 07/20/18 Yes adhesive tape Allergy Intermediate Hives 07/20/18 Yes erythromycin base Allergy Intermediate Swelling. 07/20/18 Yes iodine Allergy Intermediate Swelling. 07/20/18 Yes meperidine Allergy Intermediate Itch,N/V,Swelling 07/20/18 Yes codeine Adverse Reaction Intermediate "Builds up-makes me crazy" 07/30/18 Yes hydrocodone Adverse Reaction Intermediate "Builds up-makes me crazy." 07/30/18 Yes Physical Exam Physical Exam Constitutional: Well developed, well nourished, no acute distress HENT: Normocephalic, atraumatic, bilateral external ears normal, oropharynx moist Eyes: PERRLA, EOMI, conjunctiva normal Neck: Normal range of motion, no tenderness Cardiovascular:Heart rate regular rhythm Lungs & Thorax: Bilateral breath sounds clear to auscultation Abdomen: Bowel sounds normal, soft Skin: Warm, dry, no erythema, Back: No tenderness, no CVA tenderness Extremities: No tenderness, no cyanosis, no clubbing, ROM intact, no edema Neurologic: Alert and oriented X 3, normal motor function Psychologic: Affect normal Current Patient Data Vital Signs Vital Signs Date Time Temp Pulse Resp B/P (MAP) Pulse Ox O2 Delivery O2 Flow Rate FiO2 07/30/18 14:06 74 16 140/69 (92) 96 Nasal Cannula 2.0 07/30/18 10:16 97.6 97.6 Lab Values Laboratory Tests Test 07/30/18 11:30 07/30/18 11:50 Urine Collection Type U cath Urine Color [place] Urine Clarity Clear Urine pH Urine Specific [place] 1.015 Urine Protein mg/dL (NEG-TRACE) Urine Glucose (UA) mg/dL (NEG) Urine Ketones (Stick) mg/dL (NEG) Urine Blood (NEG) Urine Nitrite (NEG) Urine Bilirubin (NEG) Urine Urobilinogen Dipstick mg/dL (0.2 mg/dL) Urine Leukocyte Esterase (NEG) Urine RBC 0 /HPF (0-2) Urine WBC 0 /HPF (0-4) Urine Squamous Epithelial Cells Occ /LPF Urine Bacteria 0 /HPF (0-FEW) White Blood Count 7.3 x10^3/uL (4.0-11.0) Red Blood Count 4.54 x10^6/uL (3.50-5.40) Hemoglobin 13.9 g/dL (12.0-15.5) Hematocrit 41.0 % (36.0-47.0) Mean Corpuscular Volume 90 fL (79-100) Mean Corpuscular Hemoglobin 31 pg (25-35) Mean Corpuscular Hemoglobin Concent 34 g/dL (31-37) Red Cell Distribution Width 15.1 % (11.5-14.5) H Platelet Count 219 x10^3/uL (140-400) Neutrophils (%) (Auto) 67 % (31-73) Lymphocytes (%) (Auto) 21 % (24-48) L Monocytes (%) (Auto) 9 % (0-9) Eosinophils (%) (Auto) 3 % (0-3) Basophils (%) (Auto) 1 % (0-3) Neutrophils # (Auto) 4.9 x10^3uL (1.8-7.7) Lymphocytes # (Auto) 1.5 x10^3/uL (1.0-4.8) Monocytes # (Auto) 0.6 x10^3/uL (0.0-1.1) Eosinophils # (Auto) 0.2 x10^3/uL (0.0-0.7) Basophils # (Auto) 0.1 x10^3/uL (0.0-0.2) Sodium Level 140 mmol/L (136-145) Potassium Level 3.8 mmol/L (3.5-5.1) Chloride Level 103 mmol/L (98-107) Carbon Dioxide Level 34 mmol/L (21-32) H Anion Gap 3 (6-14) L Blood Urea Nitrogen 6 mg/dL (7-20) L Creatinine 0.7 mg/dL (0.6-1.0) Estimated GFR (Cockcroft-Gault) 79.2 Glucose Level 101 mg/dL (70-99) H Calcium Level 8.9 mg/dL (8.5-10.1) Laboratory Tests 07/30/18 11:50 Laboratory Tests 07/30/18 11:50 EKG EKG [] Radiology/Procedures Radiology/Procedures FINDINGS: The patient had a recent CT study performed on July 23, 2018. See that report. The liver and spleen and pancreas are unremarkable on this noncontrast study. The gallbladder is surgically absent. There is mild dilatation of the extrahepatic biliary tree measuring up to 9 mm most likely due to the reservoir effect after cholecystectomy. The wall thickening involving the cecum and ascending colon and transverse colon seen on the previous study has resolved. The terminal ileum is unremarkable. The appendix is not identified but there are no secondary CT findings of appendicitis. The pericolonic edema of the proximal to mid sigmoid colon seen previously has resolved. No new focus of mesenteric or pericolonic edema is seen and no abscess or free fluid or free intraperitoneal air is evident. Colonic diverticulosis is again evident and most severely involves the sigmoid colon. No obstructive bowel pattern is evident. Again seen are the hernias discussed on the previous report and are unchanged.Small hiatal hernia is again evident. Lobulation of both kidneys previously described is again evident. There is no new hydronephrosis or hydroureter or ureteral stone present. Compression fractures of the spine are again evident and are unchanged. No lung base consolidation is evident. IMPRESSION: Since the previous study of July 23, 2018, there has been resolution of the wall thickening of the cecum and ascending colon and transverse colon consistent with resolution of colitis. Since the previous study, there has been resolution of the previously seen pericolonic inflammation around the proximal to mid sigmoid colon consistent with resolution of diverticulitis. No new finding is seen involving the bowel. No bowel obstruction is seen. Cholecystectomy. There is mild dilatation of the extrahepatic biliary tree which appears slightly more prominent then on the previous study and measures 9 mm. This may be secondary to the reservoir effect. Correlation with liver function tests is recommended. Course & Med Decision Making Course & Med Decision Making Pertinent Labs and Imaging studies reviewed. (See chart for details) Patient was evaluated again in the emergency department for abdominal pain. There was concern about refill her medicine and the fact that she had ongoing pelvic pain. In review of her electronic medical medical record, it seems that she does have chronic pelvic pain symptoms thought to be secondary to urinary source. Today, a straight catheter urine was obtained. There was no obvious infection. Her lab panel also did not reveal acute findings. A repeat CT scan was completed to rule out any changes. The previously seen possibility of colitis or diverticulitis had resolved entirely. The patient did complain of pelvic pain although her physical exam was relatively benign. She certainly did not have any peritoneal signs. Ultimately, the patient is discharged to home. She already has follow-up scheduled with her primary care physician. She is provided a refill of her Percocet for pain. Precautions about use of this medication are discussed, specifically the risk of falling. Patient has been tolerating this medication up to this point. Patient is accompanied by her son who is also present during the exam and discharge process. All of their questions are answered. Dragon Disclaimer Dragon Disclaimer This electronic medical record was generated, in whole or in part, using a voice recognition dictation system. Departure Departure Impression: Primary Impression: Chronic pelvic pain in female Disposition: 01 HOME, SELF-CARE Condition: GOOD Patient Instructions: Pelvic Pain, Female Scripts Oxycodone/Apap 5-325 (PERCOCET 5-325 MG TABLET) 1 Each Tablet 1-2 EACH PO PRN TID PRN for severe pain, #30 TAB pain Prov: CAITIE ARREAGA DO 07/30/18 CAITIE ARREAGA DO Jul 30, 2018 17:44
== END 2018-07-30 15:05 | disposition home or self-care (01) ==
LOC: ER 09:59
DX: R10.2 Pelvic and perineal pain (principal); G89.29 Other chronic pain; E78.00 Pure hypercholesterolemia, unspecified; E03.9 Hypothyroidism, unspecified; I11.9 Hypertensive heart disease without heart failure; Z90.89 Acquired absence of other organs; Z90.49 Acquired absence of other specified parts of digestive tract; Z90.710 Acquired absence of both cervix and uterus; Z95.0 Presence of cardiac pacemaker; Z88.2 Allergy status to sulfonamides; Z88.1 Allergy status to other antibiotic agents; Z88.5 Allergy status to narcotic agent; Z88.8 Allergy status to other drugs, medicaments and biological substances; Z91.041 Radiographic dye allergy status
CPT/HCPCS: 36415; 74176; 80048; 81001; 85025; 96374; 99285; J2270; P9612

== ENCOUNTER → 2018-08-01 | Outpatient (CLI) | payer MEDICARE, OTHER ==
[2018-07-30 14:06] VITALS: BP 140/69
--- NOTE | 2018-08-01 16:41 | RAD ---
Renal ultrasound 08/01/2018 INDICATION: Abnormal CT scan. COMPARISON STUDY: CT of the abdomen and pelvis July 30, 2018. Discussion: Ultrasound evaluation of the kidneys was performed. Static images are submitted to PACS. Right kidney measures 10.6 x 4.8 x 4.8 cm. Left kidney measures 12.1 x 4.8 x 5.3 cm. No hydronephrosis, nephrolithiasis, or evidence of obstructive uropathy is seen involving either kidney. There is a 1.6 cm cyst in superior pole of left kidney. No other focal renal lesions are identified. Limited visualization of the bladder is grossly unremarkable. IMPRESSION: 1.6 cm cyst, superior pole left kidney. Otherwise unremarkable sonographic appearance of the kidneys. Electronically signed by: Jakob Menjivar MD (08/01/2018 4:37 PM) [id number]
== END | disposition home or self-care (01) ==
LOC: US 15:20
PROVIDERS: ATTEND Urology
DX: N28.1 Cyst of kidney, acquired (principal); I11.9 Hypertensive heart disease without heart failure; E03.9 Hypothyroidism, unspecified; E78.00 Pure hypercholesterolemia, unspecified; Z90.49 Acquired absence of other specified parts of digestive tract; Z90.710 Acquired absence of both cervix and uterus; Z88.2 Allergy status to sulfonamides; Z88.5 Allergy status to narcotic agent; Z88.8 Allergy status to other drugs, medicaments and biological substances; Z91.048 Other nonmedicinal substance allergy status
CPT/HCPCS: 76770

== ENCOUNTER 2018-08-07 15:58 | Inpatient (IN) | payer MEDICARE, OTHER ==
[~2018-08-07] VITALS: Ht 162.6 cm; Wt 76.3 kg
[2018-08-07] MEDS ORDERED: fentaNYL PF VIAL 100 MCG/2 ML VIAL IV ONE (16:15)
--- NOTE | 2018-08-07 16:20 | PHYS DOC ---
Past Medical History Past Medical History: High Cholesterol, Heart Disease, Hypertension, Hypothyroid, Other Additional Past Medical Histor: Freq.UTIs Past Surgical History: Appendectomy, Cholecystectomy, Hysterectomy, Pacemaker, Other Additional Past Surgical Histo: Back surgery,breast reduction,dental implants. Alcohol Use: None Drug Use: None Adult General Chief Complaint Chief Complaint: PAIN CONTROL HPI HPI Patient is a 88 year old female presents to the ED complaining of right flank pain x 3 days. Patient has a history of back pain. States that a few weeks ago she had a back fracture and cement injected into her back to fix the problem. States she's been taking Percocet at home but the Percocet is not helping her pain. Describes the pain as sharp. Rates the pain as 9 out of 10. EMS concerned family is taking the pain medication. Patient given 30 tablets from [place] [facility] on the 30 of July and states she is out at home. Denies diarrhea, abdominal pain, chest pain, dizziness, weakness, headache, fever, dysuria or hematuria. Review of Systems Review of Systems Constitutional: Denies fever or chills [] Eyes: Denies change in visual acuity, redness, or eye pain [] HENT: Denies nasal congestion or sore throat [] Respiratory: Denies cough or shortness of breath [] Cardiovascular: No additional information not addressed in HPI [] GI: Denies abdominal pain, nausea, vomiting, bloody stools or diarrhea [] : Denies dysuria or hematuria [] Musculoskeletal: Complains of back pain. Denies joint pain [] Integument: Denies rash or skin lesions [] Neurologic: Denies headache, focal weakness or sensory changes [] All other systems were reviewed and found to be within normal limits, except as documented in this note. Current Medications Current Medications Current Medications Medications (Trade) Dose Ordered Sig/Maliha Start Time Stop Time Status Last Admin Dose Admin Fentanyl Citrate (Fentanyl 2ml Vial) 50 mcg 1X ONCE 08/07/18 16:15 08/07/18 16:24 DC Morphine Sulfate (Morphine Sulfate) 4 mg 1X ONCE 08/07/18 16:30 08/07/18 16:31 DC 08/07/18 17:28 4 MG Ondansetron HCl (Zofran) 4 mg 1X ONCE 08/07/18 16:30 08/07/18 16:31 DC 08/07/18 17:27 4 MG Allergies Allergies Allergies Coded Allergies Type Severity Reaction Last Updated Verified Sulfa (Sulfonamide Antibiotics) Allergy Intermediate Unknown 07/20/18 Yes adhesive tape Allergy Intermediate Hives 07/20/18 Yes erythromycin base Allergy Intermediate Swelling. 07/20/18 Yes iodine Allergy Intermediate Swelling. 07/20/18 Yes meperidine Allergy Intermediate Itch,N/V,Swelling 07/20/18 Yes codeine Adverse Reaction Intermediate "Builds up-makes me crazy" 07/30/18 Yes hydrocodone Adverse Reaction Intermediate "Builds up-makes me crazy." 07/30/18 Yes Physical Exam Physical Exam Constitutional: Well developed, well nourished, no acute distress, non-toxic appearance. [] HENT: Normocephalic, atraumatic, bilateral external ears normal, oropharynx moist, no oral exudates, nose normal. [] Eyes: PERRLA, EOMI, conjunctiva normal, no discharge. [] Neck: Normal range of motion, no tenderness, supple, no stridor. [] Cardiovascular:Heart rate regular rhythm, no murmur [] Lungs & Thorax: Bilateral breath sounds clear to auscultation [] Abdomen: Bowel sounds normal, soft, no tenderness, no masses, no pulsatile masses. [] Skin: Warm, dry, no erythema, no rash. [] Back: No tenderness, no CVA tenderness. [] Extremities: No tenderness, no cyanosis, no clubbing, ROM intact, no edema. [] Neurologic: Alert and oriented X 3, normal motor function, normal sensory function, no focal deficits noted. [] Psychologic: Affect normal, judgement normal, mood normal. [] Current Patient Data Vital Signs Vital Signs Date Time Temp Pulse Resp B/P (MAP) Pulse Ox O2 Delivery O2 Flow Rate FiO2 08/07/18 18:14 78 18 91 08/07/18 17:28 Nasal Cannula 3.0 08/07/18 16:14 98.3 196/102 (133) 98.3 Lab Values Laboratory Tests Test 08/07/18 17:25 08/07/18 17:55 White Blood Count 7.5 x10^3/uL (4.0-11.0) Red Blood Count 4.77 x10^6/uL (3.50-5.40) Hemoglobin 14.1 g/dL (12.0-15.5) Hematocrit 42.9 % (36.0-47.0) Mean Corpuscular Volume 90 fL (79-100) Mean Corpuscular Hemoglobin 30 pg (25-35) Mean Corpuscular Hemoglobin Concent 33 g/dL (31-37) Red Cell Distribution Width 14.3 % (11.5-14.5) Platelet Count 221 x10^3/uL (140-400) Neutrophils (%) (Auto) 61 % (31-73) Lymphocytes (%) (Auto) 24 % (24-48) Monocytes (%) (Auto) 12 % (0-9) H Eosinophils (%) (Auto) 3 % (0-3) Basophils (%) (Auto) 1 % (0-3) Neutrophils # (Auto) 4.6 x10^3uL (1.8-7.7) Lymphocytes # (Auto) 1.8 x10^3/uL (1.0-4.8) Monocytes # (Auto) 0.9 x10^3/uL (0.0-1.1) Eosinophils # (Auto) 0.2 x10^3/uL (0.0-0.7) Basophils # (Auto) 0.1 x10^3/uL (0.0-0.2) Sodium Level 136 mmol/L (136-145) Potassium Level 4.5 mmol/L (3.5-5.1) Chloride Level 104 mmol/L (98-107) Carbon Dioxide Level 28 mmol/L (21-32) Anion Gap 4 (6-14) L Blood Urea Nitrogen 9 mg/dL (7-20) Creatinine 0.9 mg/dL (0.6-1.0) Estimated GFR (Cockcroft-Gault) 59.2 BUN/Creatinine Ratio 10 (6-20) Glucose Level 111 mg/dL (70-99) H Calcium Level 8.9 mg/dL (8.5-10.1) Total Bilirubin 0.5 mg/dL (0.2-1.0) Aspartate Amino Transferase (AST) 20 U/L (15-37) Alanine Aminotransferase (ALT) 19 U/L (14-59) Alkaline Phosphatase 63 U/L (46-116) Troponin I Quantitative < 0.017 ng/mL (0.000-0.055) Total Protein 6.5 g/dL (6.4-8.2) Albumin 3.1 g/dL (3.4-5.0) L Albumin/Globulin Ratio 0.9 (1.0-1.7) L Lipase 86 U/L (73-393) Urine Collection Type Void Urine Color [place] Urine Clarity Clear Urine pH 7.0 Urine Specific [place] 1.020 Urine Protein Negative mg/dL (NEG-TRACE) Urine Glucose (UA) Negative mg/dL (NEG) Urine Ketones (Stick) Negative mg/dL (NEG) Urine Blood Negative (NEG) Urine Nitrite Positive (NEG) Urine Bilirubin Negative (NEG) Urine Urobilinogen Dipstick 1.0 mg/dL (0.2 mg/dL) Urine Leukocyte Esterase Small (NEG) Urine RBC 0 /HPF (0-2) Urine WBC 20-40 /HPF (0-4) Urine Squamous Epithelial Cells Mod /LPF Urine Bacteria Mod /HPF (0-FEW) Urine Hyaline Casts Occasional /HPF Urine Mucus Slight /LPF Urine Yeast Present /HPF Laboratory Tests 08/07/18 17:25 Laboratory Tests 08/07/18 17:25 Microbiology 08/07/18 Urine Culture - Preliminary, Resulted 08/07/18 Urine Culture Result 1 ([place]) - Preliminary, Resulted EKG EKG [] Radiology/Procedures Radiology/Procedures PROCEDURE: CHEST AP ONLY EXAM: CHEST 1 VIEW History: Chest pain COMPARISON: None available. TECHNIQUE: Single portable radiograph of the chest FINDINGS: The cardiac silhouette is unremarkable. The lungs are clear bilaterally. The costophrenic sulci are clear and well demarcated. Left-sided cardiac pacer is identified. Kyphoplasty changes identified in the lower thoracic vertebral body. IMPRESSION: No radiographic evidence of an acute cardiopulmonary process.[] Course & Med Decision Making Course & Med Decision Making Pertinent Labs and Imaging studies reviewed. (See chart for details) Pain controlled in the ED. []Discussed case with hospitalist, Dr. Kenny. Agrees to admission and further management patient. Patient stable for admission. Dragon Disclaimer Dragon Disclaimer This electronic medical record was generated, in whole or in part, using a voice recognition dictation system. Departure Departure Impression: Primary Impression: Back pain Disposition: ADMITTED INPATIENT Condition: STABLE Referrals: ERNA WU MD (PCP) Scripts Nitrofurantoin Monohyd/M-Cryst (NITROFURANTOIN MONO-MCR 100 MG) 100 Mg Capsule 1 CAP PO BID, #14 CAP Prov: CONCETTA ROSS MD 08/09/18 BENNY PHILLIPS Aug 07, 2018 16:20 KAY TERRY MD Aug 10, 2018 02:12
[2018-08-07] MEDS ORDERED: MORPHINE SULFATE 4 MG/ML VIAL. IV ONE (16:30)
[2018-08-07] MEDS ORDERED: ONDANSETRON PF 4 MG/2 ML VIAL. IV ONE (16:30)
--- NOTE | 2018-08-07 17:03 | RAD ---
EXAM: CHEST 1 VIEW History: Chest pain COMPARISON: None available. TECHNIQUE: Single portable radiograph of the chest FINDINGS: The cardiac silhouette is unremarkable. The lungs are clear bilaterally. The costophrenic sulci are clear and well demarcated. Left-sided cardiac pacer is identified. Kyphoplasty changes identified in the lower thoracic vertebral body. IMPRESSION: No radiographic evidence of an acute cardiopulmonary process. Electronically signed by: Regulo Mcfarland MD (08/07/2018 5:00 PM) [id number]
[2018-08-07 17:34] LABS: BASO # 0.1 x10^3/uL (0.0-0.2); BASO % 1 % (0-3); EOS # 0.2 x10^3/uL (0.0-0.7); EOS % 3 % (0-3); HEMATOCRIT 42.9 % (36.0-47.0); HEMOGLOBIN 14.1 g/dL (12.0-15.5); LYMPH # 1.8 x10^3/uL (1.0-4.8); LYMPH % 24 % (24-48); MEAN CORPUSCULAR HEMOGLOBIN 30 pg (25-35); MEAN CORPUSCULAR HGB CONC 33 g/dL (31-37); MEAN CORPUSCULAR VOLUME 90 fL (79-100); MONO # 0.9 x10^3/uL (0.0-1.1); MONO % 12 % (0-9); NEUT # 4.6 x10^3uL (1.8-7.7); NEUT % 61 % (31-73); PLATELET COUNT 221 x10^3/uL (140-400); RED BLOOD COUNT 4.77 x10^6/uL (3.50-5.40); RED CELL DISTRIBUTION WIDTH 14.3 % (11.5-14.5); WHITE BLOOD COUNT 7.5 x10^3/uL (4.0-11.0)
[2018-08-07 17:46] LABS: CALCIUM 8.9 mg/dL (8.5-10.1); CREATININE 0.9 mg/dL (0.6-1.0); GFR 59.2; POTASSIUM 4.5 mmol/L (3.5-5.1)
[2018-08-07 17:51] LABS: ALBUMIN 3.1 g/dL (3.4-5.0); ALBUMIN/GLOBULIN RATIO 0.9 (1.0-1.7); TOTAL BILIRUBIN 0.5 mg/dL (0.2-1.0); TOTAL PROTEIN 6.5 g/dL (6.4-8.2)
[2018-08-07 18:02] LABS: BILIRUBIN,URINE NEGATIVE (NEG); CLARITY,URINE CLEAR; COLOR,URINE ORANGE; NITRITE,URINE POSITIVE (NEG); PROTEIN,URINE NEGATIVE (NEG-TRACE)
[2018-08-07 18:31] LABS: BACTERIA,URINE MOD /HPF (0-FEW); RBC,URINE 0 /HPF (0-2); WBC,URINE 20-40 /HPF (0-4)
[2018-08-07 18:32] LABS: HYALINE CASTS, URINE OCCASIONAL /HPF; SQUAMOUS EPITHELIAL CELL,UR MOD /LPF; YEAST,URINE PRESENT /HPF
[2018-08-07] MEDS ORDERED: ONDANSETRON PF 4 MG/2 ML VIAL. IV PRN (18:45)
[2018-08-07] MEDS ORDERED: MORPHINE SULFATE 2 MG/ML VIAL. IV PRN (18:45)
[2018-08-07] MEDS ORDERED: ACETAMINOPHEN 325 MG TABLET. PO PRN (18:45)
[2018-08-07 20:10] VITALS: BP 156/75
[2018-08-07 23:10] VITALS: BP 147/64
[2018-08-08] MEDS ORDERED: PROMETHAZINE 12.5 MG TABLET. PO PRN
[2018-08-08] MEDS ORDERED: PHENAZOPYRIDINE 200 MG TABLET. PO PRN
[2018-08-08] MEDS: cefTRIAXone IV Push 1 GM VIAL. IVP SCH (00:18)
--- NOTE | 2018-08-08 00:25 | HP ---
ADMIT DATE: 08/07/2018 CHIEF COMPLAINT: Back pain. HISTORY OF PRESENT ILLNESS: The patient is a pleasant 88-year-old female who was at home with her son and daughter. Basically, she had some surgery on her back recently. I think it was for compression fracture. She probably had a kyphoplasty. She was sent home with 30 Percocet, but now, she is out of them. She states the pain is not helping. When the EMS was called and they arrived, they were concerned maybe the family could be taking some of her medicine, not really clear on that. Her family members are here. Interestingly, they do have a lot of questions about what meds she is going to go home on and should they take her home meds back home with them. Nevertheless, I have discussed the case with the ER physician. We are going to admit the patient and probably work on getting her placed in a long-term care. PAST MEDICAL HISTORY: Hyperlipidemia, coronary artery disease, hypertension, hypothyroidism, frequent UTIs, cholecystectomy, appendectomy, hysterectomy, pacemaker, back surgeries, dental implants. ALLERGIES: SULFA, CODEINE, TAPE, ERYTHROMYCIN, HYDROCODONE, IODINE, MEPERIDINE. FAMILY HISTORY: Coronary artery disease. SOCIAL HISTORY: She lives at home with her son and daughter. She does not drink, smoke or take drugs. MEDICATIONS: Reviewed, please refer to the MRAD. REVIEW OF SYSTEMS: GENERAL: No history of weight change, weakness or fevers. SKIN: No bruising, hair changes or rashes. EYES: No blurred, double or loss of vision. NOSE AND THROAT: No history of nosebleeds, hoarseness or sore throat. HEART: No history of palpitations, chest pain or shortness of breath on exertion. LUNGS: Denies cough, hemoptysis, wheezing or shortness of breath. GASTROINTESTINAL: Denies changes in appetite, nausea, vomiting, diarrhea or constipation. GENITOURINARY: No history of frequency, urgency, hesitancy or nocturia. NEUROLOGIC: Denies history of numbness, tingling, tremor or weakness. PSYCHIATRIC: No history of panic, anxiety or depression. ENDOCRINE: No history of heat or cold intolerance, polyuria or polydipsia. EXTREMITIES: Denies muscle weakness, joint pain, pain on walking or stiffness. MUSCULOSKELETAL: She complains of back pain. PHYSICAL EXAMINATION: VITAL SIGNS: Temperature afebrile, pulse 80, respirations 18, blood pressure 113/70. GENERAL: She is alert, cooperative, weak, intermittently confused. HEART: Normal S1, S2. LUNGS: Clear. ABDOMEN: Soft. EXTREMITIES: Trace edema. SKIN: No rashes. ENDOCRINE: No thyromegaly. LYMPHATICS: No cervical nodes. HEMATOPOIETIC: No bruising. LABORATORY DATA: Hematology is normal. Electrolytes are normal. Troponin is 0. Urinalysis, small amount of leukocyte esterase with 20-40 white cells. ASSESSMENT AND PLAN: Intractable pain with incidental finding of urinary tract infection. The patient has been admitted. We will get her back on her pain meds, p.r.n. IV morphine. We will start IV Levaquin for her urinary tract infection. PT, OT, wound care. Frequent labs. academic services professional for alf care placement. MARTIN ESTES DO DR: DERIC/kayla JOB#: [id number] / [id number]
[2018-08-08 03:10] VITALS: BP 157/87
[2018-08-08] MEDS: LEVOTHYROXINE 75 MCG TABLET PO SCH (06:09)
[2018-08-08 06:18] LABS: BASO # 0.1 x10^3/uL (0.0-0.2); BASO % 1 % (0-3); EOS # 0.2 x10^3/uL (0.0-0.7); EOS % 5 % (0-3); HEMATOCRIT 39.7 % (36.0-47.0); HEMOGLOBIN 13.3 g/dL (12.0-15.5); LYMPH # 1.4 x10^3/uL (1.0-4.8); LYMPH % 26 % (24-48); MEAN CORPUSCULAR HEMOGLOBIN 30 pg (25-35); MEAN CORPUSCULAR HGB CONC 34 g/dL (31-37); MEAN CORPUSCULAR VOLUME 91 fL (79-100); MONO # 0.6 x10^3/uL (0.0-1.1); MONO % 12 % (0-9); NEUT % 57 % (31-73); PLATELET COUNT 199 x10^3/uL (140-400); RED BLOOD COUNT 4.39 x10^6/uL (3.50-5.40); RED CELL DISTRIBUTION WIDTH 14.5 % (11.5-14.5); WHITE BLOOD COUNT 5.3 x10^3/uL (4.0-11.0)
[2018-08-08 06:46] LABS: ALBUMIN 2.7 g/dL (3.4-5.0); ALBUMIN/GLOBULIN RATIO 0.8 (1.0-1.7); CALCIUM 8.4 mg/dL (8.5-10.1); CREATININE 0.9 mg/dL (0.6-1.0); GFR 59.2; POTASSIUM 3.9 mmol/L (3.5-5.1); TOTAL BILIRUBIN 0.5 mg/dL (0.2-1.0); TOTAL PROTEIN 5.9 g/dL (6.4-8.2)
[2018-08-08 07:00] VITALS: BP 172/95
--- NOTE | 2018-08-08 07:39 | EKG ---
[facility] [address] [place] [address] Test Date: 2018-08-07 Test Time: 16:30:43 Pat Name: KHUSHBU ACOSTA Department: Room: [facility] Gender: F Fusion Juncture Grinder: : 1930 Requested By: BENNY PHILLIPS Order Number: [id number] Reading MD: Ramos Patel Measurements Intervals [place] Rate: 75 P: -12 AL: 174 QRS: -75 QRSD: 170 T: 90 QT: 434 QTc: 488 Interpretive Statements VENTRICULAR PACED RHYTHM Electronically Signed On 08-08-2018 16:28:50 CDT by Ramos Patel
[2018-08-08] MEDS: POTASSIUM CHLORIDE 10 MEQ TABLET.ER. PO SCH ×2 (08:34→16:58)
[2018-08-08] MEDS: MULTIVITAMIN I-VITE TABLET. PO SCH (08:34)
[2018-08-08] MEDS: VENLAFAXINE 50 MG TABLET. PO SCH ×2 (08:34→20:05)
[2018-08-08] MEDS: risperiDONE 0.25 MG TABLET. PO SCH ×2 (08:34→20:05)
[2018-08-08] MEDS: ASPIRIN ENTERIC COATED 325 MG TABLET.DR. PO SCH (08:34)
[2018-08-08] MEDS: CARVEDILOL 3.125 MG TABLET. PO SCH ×2 (08:35→16:59)
[2018-08-08] MEDS: hydrALAZINE 10 MG TABLET PO SCH ×3 (08:38→20:06)
[2018-08-08] MEDS ORDERED: LIDOCAINE (700MG/PATCH) PATCH. TD PRN (09:00)
[2018-08-08] MEDS ORDERED: ONDANSETRON PF 4 MG/2 ML VIAL. IV PRN (09:00)
[2018-08-08 11:00] VITALS: BP 156/74
--- NOTE | 2018-08-08 11:19 | PDOC ---
PROGRESS NOTES Chief Complaint Chief Complaint Acute on chronic back pain UTI Generalized weakness, frailty multiple allergies DNR History of Present Illness History of Present Illness SHe complains of back pain She claims to me on adhesive tape, she gets hives so I held off Lidoderm patch Family tells staff that she supposed to have MRI without contrast-allergy to contrast No recent falls, no history of cancer that I could see Lives at home with family, she has a cane walker, she is not using Plan: Consult physiatry re back pain MRI thoracolumbar without contrast Pain control Home meds have reconciled I did verify CODE STATUS with her, she wishes to be DNR Vitals Vitals Vital Signs Date Time Temp Pulse Resp B/P (MAP) Pulse Ox O2 Delivery O2 Flow Rate FiO2 08/08/18 08:38 85 172/95 08/08/18 07:53 Nasal Cannula 3.0 08/08/18 07:00 97.5 20 93 97.5 Physical Exam General: Alert, Oriented X3, Cooperative, No acute distress Heart: Regular rate, Normal S1, Normal S2, No murmurs Lungs: Clear Abdomen: Normal bowel sounds, Soft, No tenderness Extremities: No clubbing, No cyanosis, No edema Skin: No rashes, No breakdown, No significant lesion Labs LABS Laboratory Tests Test 08/07/18 17:25 08/07/18 17:55 08/08/18 05:25 White Blood Count 7.5 x10^3/uL (4.0-11.0) 5.3 x10^3/uL (4.0-11.0) Red Blood Count 4.77 x10^6/uL (3.50-5.40) 4.39 x10^6/uL (3.50-5.40) Hemoglobin 14.1 g/dL (12.0-15.5) 13.3 g/dL (12.0-15.5) Hematocrit 42.9 % (36.0-47.0) 39.7 % (36.0-47.0) Mean Corpuscular Volume 90 fL (79-100) 91 fL (79-100) Mean Corpuscular Hemoglobin 30 pg (25-35) 30 pg (25-35) Mean Corpuscular Hemoglobin Concent 33 g/dL (31-37) 34 g/dL (31-37) Red Cell Distribution Width 14.3 % (11.5-14.5) 14.5 % (11.5-14.5) Platelet Count 221 x10^3/uL (140-400) 199 x10^3/uL (140-400) Neutrophils (%) (Auto) 61 % (31-73) 57 % (31-73) Lymphocytes (%) (Auto) 24 % (24-48) 26 % (24-48) Monocytes (%) (Auto) 12 % (0-9) 12 % (0-9) Eosinophils (%) (Auto) 3 % (0-3) 5 % (0-3) Basophils (%) (Auto) 1 % (0-3) 1 % (0-3) Neutrophils # (Auto) 4.6 x10^3uL (1.8-7.7) 3.0 x10^3uL (1.8-7.7) Lymphocytes # (Auto) 1.8 x10^3/uL (1.0-4.8) 1.4 x10^3/uL (1.0-4.8) Monocytes # (Auto) 0.9 x10^3/uL (0.0-1.1) 0.6 x10^3/uL (0.0-1.1) Eosinophils # (Auto) 0.2 x10^3/uL (0.0-0.7) 0.2 x10^3/uL (0.0-0.7) Basophils # (Auto) 0.1 x10^3/uL (0.0-0.2) 0.1 x10^3/uL (0.0-0.2) Sodium Level 136 mmol/L (136-145) 139 mmol/L (136-145) Potassium Level 4.5 mmol/L (3.5-5.1) 3.9 mmol/L (3.5-5.1) Chloride Level 104 mmol/L (98-107) 105 mmol/L (98-107) Carbon Dioxide Level 28 mmol/L (21-32) 31 mmol/L (21-32) Anion Gap 4 (6-14) 3 (6-14) Blood Urea Nitrogen 9 mg/dL (7-20) 9 mg/dL (7-20) Creatinine 0.9 mg/dL (0.6-1.0) 0.9 mg/dL (0.6-1.0) Estimated GFR (Cockcroft-Gault) 59.2 59.2 BUN/Creatinine Ratio 10 (6-20) 10 (6-20) Glucose Level 111 mg/dL (70-99) 94 mg/dL (70-99) Calcium Level 8.9 mg/dL (8.5-10.1) 8.4 mg/dL (8.5-10.1) Total Bilirubin 0.5 mg/dL (0.2-1.0) 0.5 mg/dL (0.2-1.0) Aspartate Amino Transf (AST/SGOT) 20 U/L (15-37) 27 U/L (15-37) Alanine Aminotransferase (ALT/SGPT) 19 U/L (14-59) 25 U/L (14-59) Alkaline Phosphatase 63 U/L (46-116) 61 U/L (46-116) Troponin I Quantitative < 0.017 ng/mL (0.000-0.055) Total Protein 6.5 g/dL (6.4-8.2) 5.9 g/dL (6.4-8.2) Albumin 3.1 g/dL (3.4-5.0) 2.7 g/dL (3.4-5.0) Albumin/Globulin Ratio 0.9 (1.0-1.7) 0.8 (1.0-1.7) Lipase 86 U/L (73-393) Urine Collection Type Void Urine Color [place] Urine Clarity Clear Urine pH 7.0 Urine Specific [place] 1.020 Urine Protein Negative mg/dL (NEG-TRACE) Urine Glucose (UA) Negative mg/dL (NEG) Urine Ketones (Stick) Negative mg/dL (NEG) Urine Blood Negative (NEG) Urine Nitrite Positive (NEG) Urine Bilirubin Negative (NEG) Urine Urobilinogen Dipstick 1.0 mg/dL (0.2 mg/dL) Urine Leukocyte Esterase Small (NEG) Urine RBC 0 /HPF (0-2) Urine WBC 20-40 /HPF (0-4) Urine Squamous Epithelial Cells Mod /LPF Urine Bacteria Mod /HPF (0-FEW) Urine Hyaline Casts Occasional /HPF Urine Mucus Slight /LPF Urine Yeast Present /HPF Review of Systems Review of Systems back Pain, the rest of ROS 14 point negative Positive for generalized weakness Assessment and Plan Assessmemt and Plan Problems Medical Problems: (1) Back pain Status: Acute Comment Review of Relevant I have reviewed the following items yue (where applicable) has been applied. Labs Laboratory Tests Test 08/07/18 17:25 08/07/18 17:55 08/08/18 05:25 White Blood Count 7.5 x10^3/uL (4.0-11.0) 5.3 x10^3/uL (4.0-11.0) Red Blood Count 4.77 x10^6/uL (3.50-5.40) 4.39 x10^6/uL (3.50-5.40) Hemoglobin 14.1 g/dL (12.0-15.5) 13.3 g/dL (12.0-15.5) Hematocrit 42.9 % (36.0-47.0) 39.7 % (36.0-47.0) Mean Corpuscular Volume 90 fL (79-100) 91 fL (79-100) Mean Corpuscular Hemoglobin 30 pg (25-35) 30 pg (25-35) Mean Corpuscular Hemoglobin Concent 33 g/dL (31-37) 34 g/dL (31-37) Red Cell Distribution Width 14.3 % (11.5-14.5) 14.5 % (11.5-14.5) Platelet Count 221 x10^3/uL (140-400) 199 x10^3/uL (140-400) Neutrophils (%) (Auto) 61 % (31-73) 57 % (31-73) Lymphocytes (%) (Auto) 24 % (24-48) 26 % (24-48) Monocytes (%) (Auto) 12 % (0-9) 12 % (0-9) Eosinophils (%) (Auto) 3 % (0-3) 5 % (0-3) Basophils (%) (Auto) 1 % (0-3) 1 % (0-3) Neutrophils # (Auto) 4.6 x10^3uL (1.8-7.7) 3.0 x10^3uL (1.8-7.7) Lymphocytes # (Auto) 1.8 x10^3/uL (1.0-4.8) 1.4 x10^3/uL (1.0-4.8) Monocytes # (Auto) 0.9 x10^3/uL (0.0-1.1) 0.6 x10^3/uL (0.0-1.1) Eosinophils # (Auto) 0.2 x10^3/uL (0.0-0.7) 0.2 x10^3/uL (0.0-0.7) Basophils # (Auto) 0.1 x10^3/uL (0.0-0.2) 0.1 x10^3/uL (0.0-0.2) Sodium Level 136 mmol/L (136-145) 139 mmol/L (136-145) Potassium Level 4.5 mmol/L (3.5-5.1) 3.9 mmol/L (3.5-5.1) Chloride Level 104 mmol/L (98-107) 105 mmol/L (98-107) Carbon Dioxide Level 28 mmol/L (21-32) 31 mmol/L (21-32) Anion Gap 4 (6-14) 3 (6-14) Blood Urea Nitrogen 9 mg/dL (7-20) 9 mg/dL (7-20) Creatinine 0.9 mg/dL (0.6-1.0) 0.9 mg/dL (0.6-1.0) Estimated GFR (Cockcroft-Gault) 59.2 59.2 BUN/Creatinine Ratio 10 (6-20) 10 (6-20) Glucose Level 111 mg/dL (70-99) 94 mg/dL (70-99) Calcium Level 8.9 mg/dL (8.5-10.1) 8.4 mg/dL (8.5-10.1) Total Bilirubin 0.5 mg/dL (0.2-1.0) 0.5 mg/dL (0.2-1.0) Aspartate Amino Transf (AST/SGOT) 20 U/L (15-37) 27 U/L (15-37) Alanine Aminotransferase (ALT/SGPT) 19 U/L (14-59) 25 U/L (14-59) Alkaline Phosphatase 63 U/L (46-116) 61 U/L (46-116) Troponin I Quantitative < 0.017 ng/mL (0.000-0.055) Total Protein 6.5 g/dL (6.4-8.2) 5.9 g/dL (6.4-8.2) Albumin 3.1 g/dL (3.4-5.0) 2.7 g/dL (3.4-5.0) Albumin/Globulin Ratio 0.9 (1.0-1.7) 0.8 (1.0-1.7) Lipase 86 U/L (73-393) Urine Collection Type Void Urine Color [place] Urine Clarity Clear Urine pH 7.0 Urine Specific [place] 1.020 Urine Protein Negative mg/dL (NEG-TRACE) Urine Glucose (UA) Negative mg/dL (NEG) Urine Ketones (Stick) Negative mg/dL (NEG) Urine Blood Negative (NEG) Urine Nitrite Positive (NEG) Urine Bilirubin Negative (NEG) Urine Urobilinogen Dipstick 1.0 mg/dL (0.2 mg/dL) Urine Leukocyte Esterase Small (NEG) Urine RBC 0 /HPF (0-2) Urine WBC 20-40 /HPF (0-4) Urine Squamous Epithelial Cells Mod /LPF Urine Bacteria Mod /HPF (0-FEW) Urine Hyaline Casts Occasional /HPF Urine Mucus Slight /LPF Urine Yeast Present /HPF Laboratory Tests Test 08/07/18 17:25 08/07/18 17:55 08/08/18 05:25 White Blood Count 7.5 x10^3/uL (4.0-11.0) 5.3 x10^3/uL (4.0-11.0) Red Blood Count 4.77 x10^6/uL (3.50-5.40) 4.39 x10^6/uL (3.50-5.40) Hemoglobin 14.1 g/dL (12.0-15.5) 13.3 g/dL (12.0-15.5) Hematocrit 42.9 % (36.0-47.0) 39.7 % (36.0-47.0) Mean Corpuscular Volume 90 fL (79-100) 91 fL (79-100) Mean Corpuscular Hemoglobin 30 pg (25-35) 30 pg (25-35) Mean Corpuscular Hemoglobin Concent 33 g/dL (31-37) 34 g/dL (31-37) Red Cell Distribution Width 14.3 % (11.5-14.5) 14.5 % (11.5-14.5) Platelet Count 221 x10^3/uL (140-400) 199 x10^3/uL (140-400) Neutrophils (%) (Auto) 61 % (31-73) 57 % (31-73) Lymphocytes (%) (Auto) 24 % (24-48) 26 % (24-48) Monocytes (%) (Auto) 12 % (0-9) 12 % (0-9) Eosinophils (%) (Auto) 3 % (0-3) 5 % (0-3) Basophils (%) (Auto) 1 % (0-3) 1 % (0-3) Neutrophils # (Auto) 4.6 x10^3uL (1.8-7.7) 3.0 x10^3uL (1.8-7.7) Lymphocytes # (Auto) 1.8 x10^3/uL (1.0-4.8) 1.4 x10^3/uL (1.0-4.8) Monocytes # (Auto) 0.9 x10^3/uL (0.0-1.1) 0.6 x10^3/uL (0.0-1.1) Eosinophils # (Auto) 0.2 x10^3/uL (0.0-0.7) 0.2 x10^3/uL (0.0-0.7) Basophils # (Auto) 0.1 x10^3/uL (0.0-0.2) 0.1 x10^3/uL (0.0-0.2) Sodium Level 136 mmol/L (136-145) 139 mmol/L (136-145) Potassium Level 4.5 mmol/L (3.5-5.1) 3.9 mmol/L (3.5-5.1) Chloride Level 104 mmol/L (98-107) 105 mmol/L (98-107) Carbon Dioxide Level 28 mmol/L (21-32) 31 mmol/L (21-32) Anion Gap 4 (6-14) 3 (6-14) Blood Urea Nitrogen 9 mg/dL (7-20) 9 mg/dL (7-20) Creatinine 0.9 mg/dL (0.6-1.0) 0.9 mg/dL (0.6-1.0) Estimated GFR (Cockcroft-Gault) 59.2 59.2 BUN/Creatinine Ratio 10 (6-20) 10 (6-20) Glucose Level 111 mg/dL (70-99) 94 mg/dL (70-99) Calcium Level 8.9 mg/dL (8.5-10.1) 8.4 mg/dL (8.5-10.1) Total Bilirubin 0.5 mg/dL (0.2-1.0) 0.5 mg/dL (0.2-1.0) Aspartate Amino Transf (AST/SGOT) 20 U/L (15-37) 27 U/L (15-37) Alanine Aminotransferase (ALT/SGPT) 19 U/L (14-59) 25 U/L (14-59) Alkaline Phosphatase 63 U/L (46-116) 61 U/L (46-116) Troponin I Quantitative < 0.017 ng/mL (0.000-0.055) Total Protein 6.5 g/dL (6.4-8.2) 5.9 g/dL (6.4-8.2) Albumin 3.1 g/dL (3.4-5.0) 2.7 g/dL (3.4-5.0) Albumin/Globulin Ratio 0.9 (1.0-1.7) 0.8 (1.0-1.7) Lipase 86 U/L (73-393) Urine Collection Type Void Urine Color [place] Urine Clarity Clear Urine pH 7.0 Urine Specific [place] 1.020 Urine Protein Negative mg/dL (NEG-TRACE) Urine Glucose (UA) Negative mg/dL (NEG) Urine Ketones (Stick) Negative mg/dL (NEG) Urine Blood Negative (NEG) Urine Nitrite Positive (NEG) Urine Bilirubin Negative (NEG) Urine Urobilinogen Dipstick 1.0 mg/dL (0.2 mg/dL) Urine Leukocyte Esterase Small (NEG) Urine RBC 0 /HPF (0-2) Urine WBC 20-40 /HPF (0-4) Urine Squamous Epithelial Cells Mod /LPF Urine Bacteria Mod /HPF (0-FEW) Urine Hyaline Casts Occasional /HPF Urine Mucus Slight /LPF Urine Yeast Present /HPF Medications Current Medications Fentanyl Citrate (Fentanyl 2ml Vial) 50 mcg 1X ONCE IV ; Start 08/07/18 at 16: 15; Stop 08/07/18 at 16:24; Status DC Morphine Sulfate (Morphine Sulfate) 4 mg 1X ONCE IV Last administered on at 17:28; Start 08/07/18 at 16:30; Stop 08/07/18 at 16:31; Status DC Ondansetron HCl (Zofran) 4 mg 1X ONCE IV Last administered on 08/07/18at 17:27 ; Start 08/07/18 at 16:30; Stop 08/07/18 at 16:31; Status DC Ondansetron HCl (Zofran) 4 mg PRN Q8HRS PRN IV NAUSEA/VOMITING; Start 08/07/18 at 18:45; Stop 08/08/18 at 08:55; Status DC Morphine Sulfate (Morphine Sulfate) 2 mg PRN Q2HR PRN IV PAIN Last administered on 08/08/18at 04:48; Start 08/07/18 at 18:45; Stop 08/08/18 at 18:44 Acetaminophen (Tylenol) 650 mg PRN Q4HRS PRN PO FEVER; Start 08/07/18 at 18:45 ; Stop 08/08/18 at 09:03; Status DC Ceftriaxone Sodium 1 gm/ Dextrose 50 ml @ 100 mls/hr Q24H IV ; Start 08/07/18 at 23:30; Status UNV Ceftriaxone Sodium (Rocephin) 1 gm Q24H IVP Last administered on 08/08/18at 00: 18; Start 08/07/18 at 23:30 Aspirin (Ecotrin) 325 mg DAILY PO Last administered on 08/08/18at 08:34; Start 08/08/18 at 09:00 Atorvastatin Calcium (Lipitor) 20 mg HS PO ; Start 08/08/18 at 21:00 Carvedilol (Coreg) 3.125 mg BIDWMEALS PO Last administered on 08/08/18at 08:35; Start 08/08/18 at 08:00 Levothyroxine Sodium (Synthroid) 75 mcg DAILY06 PO Last administered on at 06:09; Start 08/08/18 at 06:00 Oxycodone/ Acetaminophen (Percocet 5/325) 1 tab PRN TID PRN PO PAIN; Start 10/15 at 00:00 Potassium Chloride (Klor-Con) 10 meq BIDWMEALS PO Last administered on at 08:34; Start 08/08/18 at 08:00 Multivitamins/ Minerals (I-Peyton) 1 tab DAILY PO Last administered on 08/08/18at 08:34; Start 08/08/18 at 09:00 Donepezil HCl (Aricept) 5 mg HS PO ; Start 08/08/18 at 21:00 Hydralazine HCl (Apresoline) 10 mg TID PO Last administered on 08/08/18at 08:38 ; Start 08/08/18 at 09:00 Phenazopyridine HCl (Pyridium) 100 mg PRN TID PRN PO URINARY PAIN; Start at 00:00 Promethazine HCl (Phenergan) 25 mg PRN Q6HRS PRN PO NAUSEA/VOMITING; Start 10/15 at 00:00 Risperidone (RisperDAL) 0.5 mg BID PO Last administered on 08/08/18at 08:34; Start 08/08/18 at 09:00 Venlafaxine HCl (Effexor) 50 mg BID PO Last administered on 08/08/18at 08:34; Start 08/08/18 at 09:00 Ondansetron HCl (Zofran) 4 mg PRN Q6HRS PRN IV NAUSEA/VOMITING; Start 08/08/18 at 09:00 Acetaminophen (Tylenol) 500 mg PRN Q6HRS PRN PO MILD PAIN / TEMP; Start at 09:00 Lidocaine (Lidoderm) 1 patch DAILY PRN TD Back Pain; Start 08/08/18 at 09:00 Active Scripts Active Percocet 5-325 Mg Tablet (Oxycodone/Acetaminophen) 1 Each Tablet 1-2 Each PO PRN TID PRN pain Percocet 5-325 Mg Tablet (Oxycodone/Acetaminophen) 1 Each Tablet 1-2 Each PO PRN TID PRN pain Augmentin 875-125 Tablet (Amoxicillin/Potassium Clav) 1 Each Tablet 1 Tab PO BID Pyridium (Phenazopyridine Hcl) 100 Mg Tablet 100 Mg PO TID Reported Donepezil Hcl 5 Mg Tablet 5 Mg PO HS Venlafaxine Hcl 37.5 Mg Tablet 50 Mg PO BID Carvedilol 3.125 Mg Tablet 3.125 Mg PO BID Amlodipine Besylate 10 Mg Tablet 10 Mg PO DAILY Levaquin (Levofloxacin) 500 Mg Tablet 1 Tab PO DAILY Levothyroxine Sodium 75 Mcg Tablet 75 Mcg PO DAILY06 Phenazopyridine Hcl 100 Mg Tablet 100 Mg PO TID PRN Potassium Chloride 10 Meq Tablet.er 10 Meq PO BID Risperidone 0.5 Mg Tablet 0.5 Mg PO BID Vision Vitamins (Beta-Carotene(A) W-C & E/Min) 1 Each Tablet 1 Tab PO DAILY Hydralazine Hcl 10 Mg Tablet 10 Mg PO TID Atorvastatin Calcium 20 Mg Tablet 20 Mg PO HS Aspirin Ec (Aspirin) 325 Mg Tablet.dr 325 Mg PO DAILY Promethazine Hcl 25 Mg Tablet 25 Mg PO PRN Q6HRS PRN Vitals/I & O Vital Sign - Last 24 Hours 08/07/18 08/07/18 08/07/18 08/07/18 16:14 17:14 17:28 18:14 Temp 98.3 98.3 Pulse 81 78 78 Resp 16 16 16 18 B/P (MAP) 196/102 (133) Pulse Ox 89 94 94 91 O2 Delivery Room Air Nasal Cannula O2 Flow Rate 3.0 08/07/18 08/07/18 08/07/18 08/07/18 19:14 20:00 20:10 23:10 Temp 98.0 97.4 98.0 97.4 Pulse 78 77 75 73 Resp 18 18 18 18 B/P (MAP) 156/75 (102) 147/64 (91) Pulse Ox 92 93 92 96 O2 Delivery Nasal Cannula Nasal Cannula O2 Flow Rate 3.0 3.0 08/07/18 08/08/18 08/08/18 08/08/18 23:17 03:10 04:48 05:19 Temp 98.0 98.0 Pulse 86 Resp 18 B/P (MAP) 157/87 (110) Pulse Ox 94 O2 Delivery Nasal Cannula Nasal Cannula Nasal Cannula Nasal Cannula O2 Flow Rate 3.0 3.0 3.0 3.0 08/08/18 08/08/18 08/08/18 08/08/18 07:00 07:53 08:35 08:38 Temp 97.5 97.5 Pulse 85 85 85 Resp 20 B/P (MAP) 172/95 (120) 172/95 172/95 Pulse Ox 93 O2 Delivery Nasal Cannula Nasal Cannula O2 Flow Rate 3.0 3.0 Intake and Output 08/07/18 08/07/18 08/08/18 15:00 23:00 07:00 Intake Total 0 ml Balance 0 ml CONCETTA ROSS MD Aug 08, 2018 11:19
[2018-08-08] MEDS: ACETAMINOPHEN 500 MG TABLET PO PRN ×2 (13:31→20:05)
--- NOTE | 2018-08-08 14:44 | RAD ---
Lumbar spine, 3 views, 08/08/2018: HISTORY: Low back pain There is a mild thoracolumbar scoliosis. The lumbar vertebral heights are well-maintained. There is partial sacralization of L5. A laminectomy defect is seen at L5-S1. There are vertebroplasty changes at T12 and T9. There is mild to moderate disc space narrowing at multiple levels, particularly at L4-5 and L5-S1. There are moderate scattered marginal spurs. There are moderate degenerative changes involving the facet joints, particularly in the lower lumbar spine. There is mild associated anterolisthesis at L4-5. No acute fractures evident. Moderate aortic calcific plaquing is noted. IMPRESSION: 1. Moderate multilevel degenerative change. 2. Previous laminectomy at L5-S1. 3. Mild anterolisthesis at L4-5 due to facet joint arthropathy. 4. 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 Electronically signed by: Artem Escobedo MD (08/08/2018 2:41 PM) [facility]
[2018-08-08 15:00] VITALS: BP 168/83
[2018-08-08] MEDS: oxyCODONE/APAP 5/325 1 TAB TABLET PO PRN (16:59)
[2018-08-08 19:15] VITALS: BP 158/55
[2018-08-08] MEDS ORDERED: ATORVASTATIN CALCIUM 20 MG TABLET PO SCH (21:00)
[2018-08-08] MEDS ORDERED: DONEPEZIL HCL 5 MG TABLET. PO SCH (21:00)
[2018-08-08] MEDS ORDERED: MORPHINE SULFATE 2 MG/ML VIAL. IV PRN (21:15)
--- NOTE | 2018-08-08 23:12 | CONS ---
DATE OF CONSULTATION: 08/08/2018 I saw her at the request of Dr. Ornelas on 08/08/2018. HISTORY OF PRESENT ILLNESS: This is an 88-year-old right-handed female who moved to [facility] from [place], [place] to live with her son and [id number]. The patient was admitted with increased back pain. She had lumbar laminectomy in the past and also she had kyphoplasty for lower thoracic vertebral body compression fracture. The patient apparently was given Percocet for pain, but she ran out of them. The patient was admitted through the Emergency Room with back pain. She denies any radiation of pain to the extremities or any tingling or numbness sensation in the extremities or any trouble with her bowel or bladder control. The patient had no steps for her to manage. She usually walks using a walker. PAST MEDICAL HISTORY: Includes hyperlipidemia, coronary artery disease, hypertension, hyperthyroidism, frequent urinary tract infections, cholecystectomy, appendectomy, hysterectomy, permanent pacemaker placement, back surgery and also dental implants. ALLERGIES: SHE IS KNOWN ALLERGIC TO SULFA, CODEINE, TAPE, ERYTHROMYCIN, HYDROCODONE, IODINE AND MEPERIDINE. FAMILY HISTORY: Coronary artery disease. IMAGING DATA: I have obtained x-rays of her lumbar spine, which revealed moderate multilevel degenerative changes, previous laminectomy at L5-S1, mild anterolisthesis at L4-L5 due to past joint arthropathy and vertebroplasty changes at T12 and T9 and chest x-ray done yesterday failed to reveal any acute abnormality. PHYSICAL EXAMINATION: Today revealed an elderly female. She is alert; oriented to time, place, person and circumstance and follows commands appropriately. Moves all 4 extremities voluntarily, where she had 4+/5 grade muscle strength and deep tendon reflexes are decreased overall, with absent knee and ankle jerks and she had equal perception of touch and pinprick sensation bilaterally. She had crepitus on range of motion of both knee joints with mild knee joint effusion and she had pain-free range of motion on both hip joints. She had tenderness to palpation over the lumbar paraspinal muscles, extending over to sacroiliac joint area and straight leg raising test is negative bilaterally. No significant lumbar paraspinal muscle spasm was noted at this time. She is independent with bed mobility and transfers. Once up, she can walk using a roller walker. She did not complain of any back pain while using a lumbar corset while up. Her skin is intact at this time. ASSESSMENT: An elderly female with chronic lower back pain from degenerative disk disease and degenerative joint disease of lumbar vertebrae, status post previous lumbar spine surgery and also kyphoplasty of T9 and T12 vertebral bodies and clinical evidence of peripheral neuropathy and degenerative joint disease of both knees, without much pain. The patient with known hyperlipidemia, coronary artery disease, hypertension, hypothyroidism, frequent urinary tract infections, status post cholecystectomy, appendectomy, hysterectomy and permanent pacemaker placement. RECOMMENDATION: To ask Physical Therapy to try physical modalities and to get her up as tolerated. Home when medically stable, with home health followup. Dr. Ornelas, I appreciate asking me to participate in the care of this interesting patient. I will be glad to follow her with you as needed for rehabilitation, to consider trigger point injection if the back pain persists. LIMA BEASLEY MD DR: CHAR/kayla JOB#: [id number] / [id number]
[2018-08-08 23:15] VITALS: BP 166/66
[2018-08-09] MEDS: oxyCODONE/APAP 5/325 1 TAB TABLET PO PRN ×2 (00:02→08:31)
[2018-08-09] MEDS: cefTRIAXone IV Push 1 GM VIAL. IVP SCH (00:02)
[2018-08-09 03:15] VITALS: BP 147/67
[2018-08-09] MEDS: LEVOTHYROXINE 75 MCG TABLET PO SCH (05:01)
[2018-08-09] MEDS: ACETAMINOPHEN 500 MG TABLET PO PRN (05:01)
[2018-08-09 07:00] VITALS: BP 157/76
[2018-08-09] MEDS: ASPIRIN ENTERIC COATED 325 MG TABLET.DR. PO SCH (08:30)
[2018-08-09] MEDS: CARVEDILOL 3.125 MG TABLET. PO SCH (08:30)
[2018-08-09] MEDS: risperiDONE 0.25 MG TABLET. PO SCH (08:30)
[2018-08-09] MEDS: VENLAFAXINE 50 MG TABLET. PO SCH (08:30)
[2018-08-09] MEDS: MULTIVITAMIN I-VITE TABLET. PO SCH (08:30)
[2018-08-09] MEDS: hydrALAZINE 10 MG TABLET PO SCH ×2 (08:31→13:25)
[2018-08-09] MEDS: POTASSIUM CHLORIDE 10 MEQ TABLET.ER. PO SCH (08:31)
[2018-08-09] MEDS ORDERED: NITR100C6 PO (09:14)
--- NOTE | 2018-08-09 09:18 | PDOC ---
PROGRESS NOTES Subjective Subjective No new complaints. Objective Objective Vital Signs Date Time Temp Pulse Resp B/P (MAP) Pulse Ox O2 Delivery O2 Flow Rate FiO2 08/09/18 08:31 74 157/76 08/09/18 08:31 Nasal Cannula 3.0 08/09/18 07:00 96.4 20 97 96.4 Intake and Output 08/09/18 07:00 Intake Total 250 ml Balance 250 ml Intake Oral 250 ml # Voids 5 Physical Exam Physical Exam She denies any back pain now and she is lying on her right side and seems to be comfortable and she got up and walked with roller walker and abdominal binder and she had tenderness to palpation over lumbar paraspinal muscles and sacroiliac joints and painfully limited lumbar spine ROM and 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 Assessment Assessment Problems Medical Problems: (1) Back pain Status: Acute Plan Plan of Group Home when medically stable. Comment Review of Relevant I have reviewed the following items yue (where applicable) has been applied. Labs Laboratory Tests Test 08/07/18 17:25 08/07/18 17:55 08/08/18 05:25 White Blood Count 7.5 x10^3/uL (4.0-11.0) 5.3 x10^3/uL (4.0-11.0) Red Blood Count 4.77 x10^6/uL (3.50-5.40) 4.39 x10^6/uL (3.50-5.40) Hemoglobin 14.1 g/dL (12.0-15.5) 13.3 g/dL (12.0-15.5) Hematocrit 42.9 % (36.0-47.0) 39.7 % (36.0-47.0) Mean Corpuscular Volume 90 fL (79-100) 91 fL (79-100) Mean Corpuscular Hemoglobin 30 pg (25-35) 30 pg (25-35) Mean Corpuscular Hemoglobin Concent 33 g/dL (31-37) 34 g/dL (31-37) Red Cell Distribution Width 14.3 % (11.5-14.5) 14.5 % (11.5-14.5) Platelet Count 221 x10^3/uL (140-400) 199 x10^3/uL (140-400) Neutrophils (%) (Auto) 61 % (31-73) 57 % (31-73) Lymphocytes (%) (Auto) 24 % (24-48) 26 % (24-48) Monocytes (%) (Auto) 12 % (0-9) 12 % (0-9) Eosinophils (%) (Auto) 3 % (0-3) 5 % (0-3) Basophils (%) (Auto) 1 % (0-3) 1 % (0-3) Neutrophils # (Auto) 4.6 x10^3uL (1.8-7.7) 3.0 x10^3uL (1.8-7.7) Lymphocytes # (Auto) 1.8 x10^3/uL (1.0-4.8) 1.4 x10^3/uL (1.0-4.8) Monocytes # (Auto) 0.9 x10^3/uL (0.0-1.1) 0.6 x10^3/uL (0.0-1.1) Eosinophils # (Auto) 0.2 x10^3/uL (0.0-0.7) 0.2 x10^3/uL (0.0-0.7) Basophils # (Auto) 0.1 x10^3/uL (0.0-0.2) 0.1 x10^3/uL (0.0-0.2) Sodium Level 136 mmol/L (136-145) 139 mmol/L (136-145) Potassium Level 4.5 mmol/L (3.5-5.1) 3.9 mmol/L (3.5-5.1) Chloride Level 104 mmol/L (98-107) 105 mmol/L (98-107) Carbon Dioxide Level 28 mmol/L (21-32) 31 mmol/L (21-32) Anion Gap 4 (6-14) 3 (6-14) Blood Urea Nitrogen 9 mg/dL (7-20) 9 mg/dL (7-20) Creatinine 0.9 mg/dL (0.6-1.0) 0.9 mg/dL (0.6-1.0) Estimated GFR (Cockcroft-Gault) 59.2 59.2 BUN/Creatinine Ratio 10 (6-20) 10 (6-20) Glucose Level 111 mg/dL (70-99) 94 mg/dL (70-99) Calcium Level 8.9 mg/dL (8.5-10.1) 8.4 mg/dL (8.5-10.1) Total Bilirubin 0.5 mg/dL (0.2-1.0) 0.5 mg/dL (0.2-1.0) Aspartate Amino Transf (AST/SGOT) 20 U/L (15-37) 27 U/L (15-37) Alanine Aminotransferase (ALT/SGPT) 19 U/L (14-59) 25 U/L (14-59) Alkaline Phosphatase 63 U/L (46-116) 61 U/L (46-116) Troponin I Quantitative < 0.017 ng/mL (0.000-0.055) Total Protein 6.5 g/dL (6.4-8.2) 5.9 g/dL (6.4-8.2) Albumin 3.1 g/dL (3.4-5.0) 2.7 g/dL (3.4-5.0) Albumin/Globulin Ratio 0.9 (1.0-1.7) 0.8 (1.0-1.7) Lipase 86 U/L (73-393) Urine Collection Type Void Urine Color [place] Urine Clarity Clear Urine pH 7.0 Urine Specific [place] 1.020 Urine Protein Negative mg/dL (NEG-TRACE) Urine Glucose (UA) Negative mg/dL (NEG) Urine Ketones (Stick) Negative mg/dL (NEG) Urine Blood Negative (NEG) Urine Nitrite Positive (NEG) Urine Bilirubin Negative (NEG) Urine Urobilinogen Dipstick 1.0 mg/dL (0.2 mg/dL) Urine Leukocyte Esterase Small (NEG) Urine RBC 0 /HPF (0-2) Urine WBC 20-40 /HPF (0-4) Urine Squamous Epithelial Cells Mod /LPF Urine Bacteria Mod /HPF (0-FEW) Urine Hyaline Casts Occasional /HPF Urine Mucus Slight /LPF Urine Yeast Present /HPF Medications Current Medications Fentanyl Citrate (Fentanyl 2ml Vial) 50 mcg 1X ONCE IV ; Start 08/07/18 at 16: 15; Stop 08/07/18 at 16:24; Status DC Morphine Sulfate (Morphine Sulfate) 4 mg 1X ONCE IV Last administered on at 17:28; Start 08/07/18 at 16:30; Stop 08/07/18 at 16:31; Status DC Ondansetron HCl (Zofran) 4 mg 1X ONCE IV Last administered on 08/07/18at 17:27 ; Start 08/07/18 at 16:30; Stop 08/07/18 at 16:31; Status DC Ondansetron HCl (Zofran) 4 mg PRN Q8HRS PRN IV NAUSEA/VOMITING; Start 08/07/18 at 18:45; Stop 08/08/18 at 08:55; Status DC Morphine Sulfate (Morphine Sulfate) 2 mg PRN Q2HR PRN IV PAIN Last administered on 08/08/18at 04:48; Start 08/07/18 at 18:45; Stop 08/08/18 at 18:44 ; Status DC Acetaminophen (Tylenol) 650 mg PRN Q4HRS PRN PO FEVER; Start 08/07/18 at 18:45 ; Stop 08/08/18 at 09:03; Status DC Ceftriaxone Sodium 1 gm/ Dextrose 50 ml @ 100 mls/hr Q24H IV ; Start 08/07/18 at 23:30; Status UNV Ceftriaxone Sodium (Rocephin) 1 gm Q24H IVP Last administered on 08/09/18at 00: 02; Start 08/07/18 at 23:30 Aspirin (Ecotrin) 325 mg DAILY PO Last administered on 08/09/18at 08:30; Start 08/08/18 at 09:00 Atorvastatin Calcium (Lipitor) 20 mg HS PO Last administered on 08/08/18at 20:06 ; Start 08/08/18 at 21:00 Carvedilol (Coreg) 3.125 mg BIDWMEALS PO Last administered on 08/09/18at 08:30; Start 08/08/18 at 08:00 Levothyroxine Sodium (Synthroid) 75 mcg DAILY06 PO Last administered on at 05:01; Start 08/08/18 at 06:00 Oxycodone/ Acetaminophen (Percocet 5/325) 1 tab PRN TID PRN PO PAIN Last administered on 08/09/18at 08:31; Start 08/08/18 at 00:00 Potassium Chloride (Klor-Con) 10 meq BIDWMEALS PO Last administered on at 08:31; Start 08/08/18 at 08:00 Multivitamins/ Minerals (I-[place]) 1 tab DAILY PO Last administered on 08/09/18at 08:30; Start 08/08/18 at 09:00 Donepezil HCl (Aricept) 5 mg HS PO Last administered on 08/08/18at 20:05; Start 08/08/18 at 21:00 Hydralazine HCl (Apresoline) 10 mg TID PO Last administered on 08/09/18at 08:31 ; Start 08/08/18 at 09:00 Phenazopyridine HCl (Pyridium) 100 mg PRN TID PRN PO URINARY PAIN; Start at 00:00 Promethazine HCl (Phenergan) 25 mg PRN Q6HRS PRN PO NAUSEA/VOMITING; Start 10/15 at 00:00 Risperidone (RisperDAL) 0.5 mg BID PO Last administered on 08/09/18at 08:30; Start 08/08/18 at 09:00 Venlafaxine HCl (Effexor) 50 mg BID PO Last administered on 08/09/18at 08:30; Start 08/08/18 at 09:00 Ondansetron HCl (Zofran) 4 mg PRN Q6HRS PRN IV NAUSEA/VOMITING; Start 08/08/18 at 09:00 Acetaminophen (Tylenol) 500 mg PRN Q6HRS PRN PO MILD PAIN / TEMP Last administered on 08/09/18at 05:01; Start 08/08/18 at 09:00 Lidocaine (Lidoderm) 1 patch DAILY PRN TD Back Pain; Start 08/08/18 at 09:00; Stop 08/08/18 at 11:16; Status DC Morphine Sulfate (Morphine Sulfate) 2 mg PRN Q2HR PRN IV PAIN Last administered on 08/09/18at 05:01; Start 08/08/18 at 21:15 Active Scripts Active Percocet 5-325 Mg Tablet (Oxycodone/Acetaminophen) 1 Each Tablet 1-2 Each PO PRN TID PRN pain Percocet 5-325 Mg Tablet (Oxycodone/Acetaminophen) 1 Each Tablet 1-2 Each PO PRN TID PRN pain Augmentin 875-125 Tablet (Amoxicillin/Potassium Clav) 1 Each Tablet 1 Tab PO BID Pyridium (Phenazopyridine Hcl) 100 Mg Tablet 100 Mg PO TID Reported Donepezil Hcl 5 Mg Tablet 5 Mg PO HS Venlafaxine Hcl 37.5 Mg Tablet 50 Mg PO BID Carvedilol 3.125 Mg Tablet 3.125 Mg PO BID Amlodipine Besylate 10 Mg Tablet 10 Mg PO DAILY Levaquin (Levofloxacin) 500 Mg Tablet 1 Tab PO DAILY Levothyroxine Sodium 75 Mcg Tablet 75 Mcg PO DAILY06 Phenazopyridine Hcl 100 Mg Tablet 100 Mg PO TID PRN Potassium Chloride 10 Meq Tablet.er 10 Meq PO BID Risperidone 0.5 Mg Tablet 0.5 Mg PO BID Vision Vitamins (Beta-Carotene(A) W-C & E/Min) 1 Each Tablet 1 Tab PO DAILY Hydralazine Hcl 10 Mg Tablet 10 Mg PO TID Atorvastatin Calcium 20 Mg Tablet 20 Mg PO HS Aspirin Ec (Aspirin) 325 Mg Tablet.dr 325 Mg PO DAILY Promethazine Hcl 25 Mg Tablet 25 Mg PO PRN Q6HRS PRN Vitals/I & O Vital Sign - Last 24 Hours 08/08/18 08/08/18 08/08/18 08/08/18 11:00 12:31 15:00 16:59 Temp 97.7 97.7 97.7 97.7 Pulse 75 75 83 83 Resp 20 20 B/P (MAP) 156/74 (101) 156/74 168/83 (111) 168/83 Pulse Ox 91 96 O2 Delivery Nasal Cannula Nasal Cannula O2 Flow Rate 3.0 3.0 08/08/18 08/08/18 08/08/18 08/08/18 16:59 19:15 20:00 20:06 Temp 97.7 97.7 Pulse 72 72 Resp 20 B/P (MAP) 158/55 (89) 158/55 Pulse Ox 93 O2 Delivery Nasal Cannula Nasal Cannula Nasal Cannula O2 Flow Rate 3.0 3.0 3.0 08/08/18 08/09/18 08/09/18 08/09/18 23:15 00:02 01:02 03:15 Temp 98.1 97.9 98.1 97.9 Pulse 79 76 Resp 20 20 B/P (MAP) 166/66 (99) 147/67 (93) Pulse Ox 94 94 95 O2 Delivery Nasal Cannula Nasal Cannula Nasal Cannula Nasal Cannula O2 Flow Rate 3.0 3.0 3.0 3.0 08/09/18 08/09/18 08/09/18 08/09/18 05:01 05:31 07:00 07:32 Temp 96.4 96.4 Pulse 74 Resp 20 B/P (MAP) 157/76 (103) Pulse Ox 95 97 O2 Delivery Nasal Cannula Nasal Cannula Nasal Cannula Nasal Cannula O2 Flow Rate 3.0 3.0 3.0 3.0 08/09/18 08/09/18 08/09/18 08:30 08:31 08:31 Pulse 74 74 B/P (MAP) 157/76 157/76 O2 Delivery Nasal Cannula O2 Flow Rate 3.0 Intake and Output 08/08/18 08/08/18 08/09/18 15:00 23:00 07:00 Intake Total 50 ml 200 ml Balance 50 ml 200 ml LIMA BEASLEY MD Aug 09, 2018 09:18
[2018-08-09] MEDS ORDERED: NITROFURANTOIN MONOHYD/M-CRYST 100 MG CAPSULE. PO SCH (10:00)
[2018-08-09 11:00] VITALS: BP 130/64
--- NOTE | 2018-08-09 12:37 | PDOC3 ---
Discharge Summary Visit Information Date of Admission: Aug 07, 2018 Date of Discharge: Aug 09, 2018 Admitting Diagnosis Comment: BACK PAIN 1. Moderate multilevel degenerative change. 2. Previous laminectomy at L5-S1. 3. Mild anterolisthesis at L4-5 due to facet joint arthropathy. 4. 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 RENAL CYST? Final Diagnosis Problems Medical Problems: (1) Back pain Status: Acute Brief Hospital Course Allergies Allergies Coded Allergies Type Severity Reaction Last Updated Verified Sulfa (Sulfonamide Antibiotics) Allergy Intermediate Unknown 07/20/18 Yes adhesive tape Allergy Intermediate Hives 07/20/18 Yes erythromycin base Allergy Intermediate Swelling. 07/20/18 Yes iodine Allergy Intermediate Swelling. 07/20/18 Yes meperidine Allergy Intermediate Itch,N/V,Swelling 07/20/18 Yes codeine Adverse Reaction Intermediate "Builds up-makes me crazy" 07/30/18 Yes hydrocodone Adverse Reaction Intermediate "Builds up-makes me crazy." 07/30/18 Yes Vital Signs Vital Signs Date Time Temp Pulse Resp B/P (MAP) Pulse Ox O2 Delivery O2 Flow Rate FiO2 08/09/18 11:00 96.1 72 20 130/64 (86) 95 Nasal Cannula 3.0 96.1 Lab Results Laboratory Tests Test 08/07/18 17:25 08/07/18 17:55 08/08/18 05:25 White Blood Count 7.5 x10^3/uL (4.0-11.0) 5.3 x10^3/uL (4.0-11.0) Red Blood Count 4.77 x10^6/uL (3.50-5.40) 4.39 x10^6/uL (3.50-5.40) Hemoglobin 14.1 g/dL (12.0-15.5) 13.3 g/dL (12.0-15.5) Hematocrit 42.9 % (36.0-47.0) 39.7 % (36.0-47.0) Mean Corpuscular Volume 90 fL (79-100) 91 fL (79-100) Mean Corpuscular Hemoglobin 30 pg (25-35) 30 pg (25-35) Mean Corpuscular Hemoglobin Concent 33 g/dL (31-37) 34 g/dL (31-37) Red Cell Distribution Width 14.3 % (11.5-14.5) 14.5 % (11.5-14.5) Platelet Count 221 x10^3/uL (140-400) 199 x10^3/uL (140-400) Neutrophils (%) (Auto) 61 % (31-73) 57 % (31-73) Lymphocytes (%) (Auto) 24 % (24-48) 26 % (24-48) Monocytes (%) (Auto) 12 % (0-9) 12 % (0-9) Eosinophils (%) (Auto) 3 % (0-3) 5 % (0-3) Basophils (%) (Auto) 1 % (0-3) 1 % (0-3) Neutrophils # (Auto) 4.6 x10^3uL (1.8-7.7) 3.0 x10^3uL (1.8-7.7) Lymphocytes # (Auto) 1.8 x10^3/uL (1.0-4.8) 1.4 x10^3/uL (1.0-4.8) Monocytes # (Auto) 0.9 x10^3/uL (0.0-1.1) 0.6 x10^3/uL (0.0-1.1) Eosinophils # (Auto) 0.2 x10^3/uL (0.0-0.7) 0.2 x10^3/uL (0.0-0.7) Basophils # (Auto) 0.1 x10^3/uL (0.0-0.2) 0.1 x10^3/uL (0.0-0.2) Sodium Level 136 mmol/L (136-145) 139 mmol/L (136-145) Potassium Level 4.5 mmol/L (3.5-5.1) 3.9 mmol/L (3.5-5.1) Chloride Level 104 mmol/L (98-107) 105 mmol/L (98-107) Carbon Dioxide Level 28 mmol/L (21-32) 31 mmol/L (21-32) Anion Gap 4 (6-14) 3 (6-14) Blood Urea Nitrogen 9 mg/dL (7-20) 9 mg/dL (7-20) Creatinine 0.9 mg/dL (0.6-1.0) 0.9 mg/dL (0.6-1.0) Estimated GFR (Cockcroft-Gault) 59.2 59.2 BUN/Creatinine Ratio 10 (6-20) 10 (6-20) Glucose Level 111 mg/dL (70-99) 94 mg/dL (70-99) Calcium Level 8.9 mg/dL (8.5-10.1) 8.4 mg/dL (8.5-10.1) Total Bilirubin 0.5 mg/dL (0.2-1.0) 0.5 mg/dL (0.2-1.0) Aspartate Amino Transf (AST/SGOT) 20 U/L (15-37) 27 U/L (15-37) Alanine Aminotransferase (ALT/SGPT) 19 U/L (14-59) 25 U/L (14-59) Alkaline Phosphatase 63 U/L (46-116) 61 U/L (46-116) Troponin I Quantitative < 0.017 ng/mL (0.000-0.055) Total Protein 6.5 g/dL (6.4-8.2) 5.9 g/dL (6.4-8.2) Albumin 3.1 g/dL (3.4-5.0) 2.7 g/dL (3.4-5.0) Albumin/Globulin Ratio 0.9 (1.0-1.7) 0.8 (1.0-1.7) Lipase 86 U/L (73-393) Urine Collection Type Void Urine Color [place] Urine Clarity Clear Urine pH 7.0 Urine Specific [place] 1.020 Urine Protein Negative mg/dL (NEG-TRACE) Urine Glucose (UA) Negative mg/dL (NEG) Urine Ketones (Stick) Negative mg/dL (NEG) Urine Blood Negative (NEG) Urine Nitrite Positive (NEG) Urine Bilirubin Negative (NEG) Urine Urobilinogen Dipstick 1.0 mg/dL (0.2 mg/dL) Urine Leukocyte Esterase Small (NEG) Urine RBC 0 /HPF (0-2) Urine WBC 20-40 /HPF (0-4) Urine Squamous Epithelial Cells Mod /LPF Urine Bacteria Mod /HPF (0-FEW) Urine Hyaline Casts Occasional /HPF Urine Mucus Slight /LPF Urine Yeast Present /HPF Brief Hospital Course Ms. Dennis is a 88 old AA female admitted for back pain, SHe has hx acute on chronic back pain. FAm was requesting mRI but cant be done bec of indwelling pacer, We did x-rays which showed previous laminectomy L5-S1 DJD, joint facet arthropathy-please refer to my above assessment plan Provide some pain medicines, Lidoderm patch. No PT needs at least for arranged for home health. Family request a renal ultrasound or MRI because of history of renal cyst. Ultrasound kidneys are pending, there is no AK I. If that is all benign and will go home today with home health Pain medicines on chart COnsults: physiatry Proc; imaging Dispo: Discharge Information Condition at Discharge: Improved, Stable Disposition/Orders: D/C to Home w/ HH Scheduled Amlodipine Besylate (Amlodipine Besylate) 10 Mg Tablet, 10 MG PO DAILY, ( Reported) Entered as Reported by: YESSENIA NUNO on 07/20/18852 Amoxicillin/Potassium Clav (Augmentin 875-125 Tablet) 1 Each Tablet, 1 TAB PO BID, #20 Prescribed by: KAY TERRY MD on 07/23/18 1037 Aspirin (Aspirin Ec) 325 Mg Tablet.dr, 325 MG PO DAILY, (Reported) Entered as Reported by: YESSENIA NUNO on 07/20/18852 Last Action: Continued on 08/07/182357 by CARLINE SHELLEY Atorvastatin Calcium (Atorvastatin Calcium) 20 Mg Tablet, 20 MG PO HS for FOR CHOLESTEROL, Ref 0 (Reported) Entered as Reported by: YESSENIA NUNO on 07/20/18852 Last Action: Continued on 08/07/182357 by CARLINE SHELLEY Beta-Carotene(A) W-C & E/Min (Vision Vitamins) 1 Each Tablet, 1 TAB PO DAILY, ( Reported) Entered as Reported by: YESSENIA NUNO on 07/20/18852 Last Action: Converted on 08/07/182357 by CARLINE SHELLEY Carvedilol (Carvedilol) 3.125 Mg Tablet, 3.125 MG PO BID, (Reported) Entered as Reported by: YESSENIA NUNO on 07/20/18852 Last Action: Continued on 08/07/182357 by CARLINE SHELLEY Donepezil Hcl (Donepezil Hcl) 5 Mg Tablet, 5 MG PO HS, (Reported) Entered as Reported by: YESSENIA NUNO on 07/20/18852 Last Action: Converted on 08/07/182357 by CARLINE SHELLEY Hydralazine Hcl (Hydralazine Hcl) 10 Mg Tablet, 10 MG PO TID, (Reported) Entered as Reported by: YESSENIA NUNO on 07/20/18852 Last Action: Converted on 08/07/182357 by CARLINE SHELLEY Levofloxacin (Levaquin) 500 Mg Tablet, 1 TAB PO DAILY, #7 (Reported) Entered as Reported by: YESSENIA NUNO on 07/20/18852 Last Action: Reviewed on 08/07/182314 by CARLINE SHELLEY Levothyroxine Sodium (Levothyroxine Sodium) 75 Mcg Tablet, 75 MCG PO DAILY06, ( Reported) Entered as Reported by: YESSENIA NUNO on 07/20/18852 Last Action: Continued on 08/07/182357 by CARLINE SHELLEY Nitrofurantoin Monohyd/M-Cryst (Nitrofurantoin [place]-Mcr 100 Mg) 100 Mg Capsule, 1 CAP PO BID, #14 Prescribed by: CONCETTA ROSS on 08/09/18 0914 Phenazopyridine Hcl (Pyridium) 100 Mg Tablet, 100 MG PO TID, #20 Prescribed by: ARMAND AMAYA MD on 07/20/18926 Potassium Chloride (Potassium Chloride) 10 Meq Tablet.er, 10 MEQ PO BID, ( Reported) Entered as Reported by: YESSENIA NUNO on 07/20/18852 Last Action: Continued on 08/07/182357 by CARLINE SHELLEY Risperidone (Risperidone) 0.5 Mg Tablet, 0.5 MG PO BID, (Reported) Entered as Reported by: YESSENIA NUNO on 07/20/18852 Last Action: Converted on 08/07/182357 by CARLINE SHELLEY Venlafaxine Hcl (Venlafaxine Hcl) 37.5 Mg Tablet, 50 MG PO BID, (Reported) Entered as Reported by: YESSENIA NUNO on 07/20/18852 Last Action: Converted on 08/07/182357 by CARLINE SHELLEY Scheduled PRN Oxycodone/Apap 5-325 (Percocet 5-325 Mg Tablet) 1 Each Tablet, 1-2 EACH PO PRN TID PRN for PAIN, #25 pain Prescribed by: KAY TERRY MD on 07/23/181036 Last Action: Continued on 08/07/182357 by CARLINE SHELLEY Oxycodone/Apap 5-325 (Percocet 5-325 Mg Tablet) 1 Each Tablet, 1-2 EACH PO PRN TID PRN for severe pain, #30 pain Prescribed by: CAITIE ARREAGA D.O. on 07/30/18 1438 Phenazopyridine Hcl (Phenazopyridine Hcl) 100 Mg Tablet, 100 MG PO TID PRN for URINARY PAIN, (Reported) Entered as Reported by: YESSENIA NUNO on 07/20/18852 Last Action: Converted on 08/07/182357 by CARLINE SHELLEY Promethazine Hcl (Promethazine Hcl) 25 Mg Tablet, 25 MG PO PRN Q6HRS PRN for NAUSEA/VOMITING, (Reported) Entered as Reported by: YESSENIA NUNO on 07/20/18852 Last Action: Converted on 08/07/182357 by CONCETTA QUEVEDO MD Aug 09, 2018 12:37
--- NOTE | 2018-08-09 12:40 | DISCH ---
DISCHARGE WITH HOME HEALTH DISCHARGE INFORMATION: Final Diagnosis: Problems Medical Problems: (1) Back pain Status: Acute Condition on Discharge: Stable CODE STATUS: Code Status: Full HOME HEALTH: Face to Face: I certify this patient is under my care and that I, or a nurse practitioner or physician's acquisitions assistant working with me, had a face to face encounter that meets the physician face to face encounter requirements with this patient on []. Physical Therapy For: Evalulation/Treatment Occupational Therapy For: Evaluation/Treatment Home Health Aide For: Self-care POST DISCHARGE ORDERS: Activity Instructions for Disc: Activity as tolerated Weight Bearing Status after Di: As tolerated DIET AFTER DISCHARGE: Regular CHECKS AFTER DISCHARGE: Checks after discharge: Check blood press - daily TREATMENT/EQUIPMENT ORDERS: Adaptive Equipment Issued: None CERTIFICATION STATEMENT: Certification Statement: Certification Statement: Based on the above finding, I certify that this patient is confined to the home and needs intermittent correction care, physical therapy and/or speech therapy, or continues to need occupational therapy.~ This patient is under my care, and I have initiated the establishment of the plan of care.~ This patient will be followed by myself or a community physician who will periodically review the plan of care. Home Meds Active Scripts Nitrofurantoin Monohyd/M-Cryst (NITROFURANTOIN MONO-MCR 100 MG) 100 Mg Capsule, 1 CAP PO BID, #14 CAP Prov:CONCETTA ROSS MD 08/09/18 Oxycodone/Apap 5-325 (PERCOCET 5-325 MG TABLET) 1 Each Tablet, 1-2 EACH PO PRN TID PRN for severe pain, #30 TAB pain Prov:CAITIE ARREAGA DO 07/30/18 Oxycodone/Apap 5-325 (PERCOCET 5-325 MG TABLET) 1 Each Tablet, 1-2 EACH PO PRN TID PRN for PAIN, #25 TAB pain Prov:KAY TERRY MD 07/23/18 Amoxicillin/Potassium Clav (AUGMENTIN 875-125 TABLET) 1 Each Tablet, 1 TAB PO BID, #20 TAB Prov:KAY TERRY MD 07/23/18 Phenazopyridine Hcl (PYRIDIUM) 100 Mg Tablet, 100 MG PO TID, #20 TAB Prov:ARMAND AMAYA MD 07/20/18 Reported Medications Donepezil Hcl (DONEPEZIL HCL) 5 Mg Tablet, 5 MG PO HS, TAB 07/20/18 Venlafaxine Hcl (VENLAFAXINE HCL) 37.5 Mg Tablet, 50 MG PO BID, TAB 07/20/18 Carvedilol (CARVEDILOL) 3.125 Mg Tablet, 3.125 MG PO BID, TAB 07/20/18 Amlodipine Besylate (AMLODIPINE BESYLATE) 10 Mg Tablet, 10 MG PO DAILY, TAB 07/20/18 Levofloxacin (LEVAQUIN) 500 Mg Tablet, 1 TAB PO DAILY, #7 TAB 07/20/18 Levothyroxine Sodium (LEVOTHYROXINE SODIUM) 75 Mcg Tablet, 75 MCG PO DAILY06, TAB 07/20/18 Phenazopyridine Hcl (PHENAZOPYRIDINE HCL) 100 Mg Tablet, 100 MG PO TID PRN for URINARY PAIN, TAB 07/20/18 Potassium Chloride (POTASSIUM CHLORIDE) 10 Meq Tablet.er, 10 MEQ PO BID, TAB 07/20/18 Risperidone (RISPERIDONE) 0.5 Mg Tablet, 0.5 MG PO BID, TAB 07/20/18 Beta-Carotene(A) W-C & E/Min (VISION VITAMINS) 1 Each Tablet, 1 TAB PO DAILY, TAB 07/20/18 Hydralazine Hcl (HYDRALAZINE HCL) 10 Mg Tablet, 10 MG PO TID, TAB 07/20/18 Atorvastatin Calcium (ATORVASTATIN CALCIUM) 20 Mg Tablet, 20 MG PO HS for FOR CHOLESTEROL, TAB 0 Refills 07/20/18 Aspirin (ASPIRIN EC) 325 Mg Tablet.dr, 325 MG PO DAILY, TAB 07/20/18 Promethazine Hcl (PROMETHAZINE HCL) 25 Mg Tablet, 25 MG PO PRN Q6HRS PRN for NAUSEA/VOMITING, TAB 07/20/18 CONCETTA ROSS MD Aug 09, 2018 12:40
--- NOTE | 2018-08-09 12:52 | RAD ---
Renal ultrasound, 08/09/2018: HISTORY: Follow-up renal cyst The right kidney measures 10.8 cm in length while the left kidney measures 12.8 cm. There is no evidence of hydronephrosis. There is mild bilateral renal cortical scarring. A small hypoechoic structures again noted in the upper pole of the left kidney currently measures 1.8 cm in greatest diameter. There is some echogenic irregularity of its wall. Multiphase CT scanning would best demonstrate this structure, if clinically indicated. Allowing for technical differences it appears unchanged since 08/01/2018. No other renal mass is evident. The bladder is collapsed and not adequately visualized. IMPRESSION: 1. Small complicated left renal cyst. 2. No significant change since 08/01/2018 Electronically signed by: Artem Escobedo MD (08/09/2018 12:49 PM) [facility]
[2018-08-09 13:25] VITALS: BP 130/64
== END 2018-08-09 15:45 | disposition home health service (06) | DRG 689 ==
LOC: ER 15:58 → 6 SOUTH 18:36
PROVIDERS: ADMIT Internal Medicine; ATTEND Internal Medicine
DX: N39.0 Urinary tract infection, site not specified (principal); J96.00 Acute respiratory failure, unspecified whether with hypoxia or hypercapnia; E78.00 Pure hypercholesterolemia, unspecified; E03.9 Hypothyroidism, unspecified; I10 Essential (primary) hypertension; I25.10 Atherosclerotic heart disease of native coronary artery without angina pectoris; E78.5 Hyperlipidemia, unspecified; G89.29 Other chronic pain; M54.5 Low back pain; M51.36 Other intervertebral disc degeneration, lumbar region; M47.816 Spondylosis without myelopathy or radiculopathy, lumbar region; G62.9 Polyneuropathy, unspecified; E05.90 Thyrotoxicosis, unspecified without thyrotoxic crisis or storm; Z66 Do not resuscitate; M17.0 Bilateral primary osteoarthritis of knee; Z87.440 Personal history of urinary (tract) infections; Z90.49 Acquired absence of other specified parts of digestive tract; Z90.710 Acquired absence of both cervix and uterus; Z95.0 Presence of cardiac pacemaker; Z88.5 Allergy status to narcotic agent; Z88.2 Allergy status to sulfonamides; Z88.8 Allergy status to other drugs, medicaments and biological substances; Z88.1 Allergy status to other antibiotic agents; Z91.041 Radiographic dye allergy status; Z82.49 Family history of ischemic heart disease and other diseases of the circulatory system
CPT/HCPCS: 36415; 71045; 72100; 76770; 80053; 81001; 83690; 84484; 85025; 87086; 93005; 94618; 96374; 96375; J0696; J2270; J2405; 99285-25